=== PATIENT | female | born 1955 | race Caucasian/White ===

== ENCOUNTER 2017-03-21 02:41 | Observation (INO) | payer OTHER ==
[2017-03-21] VITALS (9 sets, daily range): BP systolic 132–218; BP diastolic 69–101; PULSE 53–67; RESP 18–19; TEMP 97.8–98.8; O2SAT 95–98
[~2017-03-21] VITALS: Ht 162.6 cm; Wt 115.0 kg
[~2017-03-21 02:41] MED LIST: LEVO125T4 PO; METF500T PO; MULT1TAB84 PO; SIMV20TA PO; VITA200013 PO
[2017-03-21] MEDS ORDERED: ASPIRIN 81 MG CHEW TAB PO ONE (03:15)
[2017-03-21] MEDS ORDERED: SODIUM CHLORIDE 0.9% FLUSH 10 ML FLUSH IVF PRN (03:15)
[2017-03-21] MEDS ORDERED: ASPI81CH37 CHEW (03:40)
[2017-03-21] MEDS ORDERED: TYLETAB34 PO (03:40)
[2017-03-21 03:48] LABS: AUTOMATED NEUTROPHIL # 5.6 TH/MM3 (1.8-7.7); BASOPHIL % 0.5 % (0.0-2.0); EOSINOPHIL # 0.2 TH/MM3 (0-0.4); EOSINOPHIL % 2.6 % (0.0-4.0); HEMATOCRIT 46.8 % (35.0-46.0); HEMO FLAGS DIFF FINAL; LYMPH % 29.5 % (9.0-44.0); LYMPHOCYTE # 2.7 TH/MM3 (1.0-4.8); MEAN CELL VOLUME 92.5 FL (80.0-100.0); MEAN CORPUSCULAR HEMOGLOBIN 30.5 PG (27.0-34.0); MEAN CORPUSCULAR HGB CONC 32.9 % (32.0-36.0); NEUT % 60.4 % (16.0-70.0); PLATELET COUNT 285 TH/MM3 (150-450); RED BLOOD COUNT 5.06 MIL/MM3 (4.00-5.30); RED CELL DISTRIBUTION WIDTH 13.6 % (11.6-17.2); WHITE BLOOD COUNT 9.3 TH/MM3 (4.0-11.0)
[2017-03-21 04:08] LABS: ALKALINE PHOSPHATASE 97 U/L (45-117); TOTAL BILIRUBIN ADULT 0.4 MG/DL (0.2-1.0)
[2017-03-21 04:12] LABS: ALT (GPT) 42 U/L (10-53); ANION GAP 7 MEQ/L (5-15); AST (GOT) 44 U/L (15-37); BICARBONATE 28.8 MEQ/L (21.0-32.0); BLOOD UREA NITROGEN 20 MG/DL (7-18); CHLORIDE 107 MEQ/L (98-107); GLOMERULAR FILTRATION RATE 60 ML/MIN (>89); POTASSIUM 4.6 MEQ/L (3.5-5.1); SODIUM (NA) 143 MEQ/L (136-145)
--- NOTE | 2017-03-21 04:19 | PD ---
HPI Chief Complaint: Chest Pain Time Seen by Provider: 02:59 Travel History International Travel<30 days: No Contact w/Intl Traveler<30days: No Traveled to known affect area: No History of Present Illness HPI This is a 61-year-old female who presents to the emergency department chest discomfort mostly in the epigastrium and sternal area radiating to the left shoulder, intermittent, occurring about 5 times overnight associated with some shortness of breath and nausea as well as lightheadedness. Patient reports she feels like this is similar to gallbladder attack she had when she still had her gallbladder. She had a stress test 3-4 years ago which was normal. She does have a history of diabetes, hyperlipidemia and her mother had a heart attack in her 50s. She recently was told that she has an abnormality on her mammogram and she has to have another test on Wednesday so she has been anxious and under some stress. PFSH Past Medical History High Cholesterol: Yes Diabetes: Yes Patient Takes Glucophage: Yes (METFORMIN 03/20/17 2300) Tetanus Vaccination: Unknown Influenza Vaccination: Yes Tubal Ligation: Yes Past Surgical History Abdominal Surgery: Yes (GASTRIC SLEEVE) Section: Yes (X3) Cholecystectomy: Yes Social History Alcohol Use: Yes (COUPLE BEERS PER NIGHT) Tobacco Use: No Substance Use: No Allergies-Medications (Allergen,Severity, Reaction): Coded Allergies: Penicillin (Verified Allergy, Severe, mouth and gum swelling, 03/21/17) Reported Meds & Prescriptions Reported Meds & Active Scripts Active Simvastatin 20 Mg Tab 20 Mg PO DAILY Levothyroxine (Levothyroxine Sodium) 125 Mcg Tab 125 Mcg PO DAILY Please make f/u appointment. Vitamin D (Cholecalciferol) 2,000 Unit Cap 1 Cap PO DAILY Metformin (Metformin HCl) 500 Mg Tab 500 Mg PO BID With a meal Reported Aspirin Low Dose (Aspirin) 81 Mg Chew 81 Mg CHEW DAILY Tylenol-Codeine #3 (Acetaminophen-Codeine) 300-30 mg Tab 1 Tab PO Q4H PRN Multivitamin Adults (Multiple Vitamins W/ Minerals) 1 Tab 1 Tab PO DAILY Review of Systems Except as stated in HPI: all other systems reviewed are Neg Physical Exam Narrative GENERAL:Well appearing, no acute distress SKIN: Focused skin assessment warm and dry. HEAD: Atraumatic. Normocephalic. EYES: Pupils equal and round. No injection or drainage. ENT: Moist mucous membranes NECK: Trachea midline. CARDIOVASCULAR: Regular rate and rhythm. No murmur appreciated. RESPIRATORY: Clear to auscultation. Breath sounds equal bilaterally. GASTROINTESTINAL: Abdomen soft, non-tender, nondistended. MUSCULOSKELETAL: No obvious deformities. NEUROLOGICAL: Awake and alert. No obvious cranial nerve deficits. Moving all extremities. PSYCHIATRIC: Appropriate mood and affect; insight and judgment normal. Data Data Last Documented VS Vital Signs Date Time Temp Pulse Resp B/P Pulse Ox O2 Delivery O2 Flow Rate FiO2 03/21/17 03:50 156/74 03/21/17 03:49 97 03/21/17 03:49 63 03/21/17 02:45 97.8 18 Room Air Orders Electrocardiogram (03/21/17 02:59) Electrocardiogram (03/21/17 03:07) Complete Blood Count With Diff (03/21/17 03:07) Comprehensive Metabolic Panel (03/21/17 03:07) D-Dimer (03/21/17 03:07) Troponin I (03/21/17 03:07) Chest, Single Ap (03/21/17 03:07) Ecg Monitoring (03/21/17 03:07) Bilateral Bp Monitoring (03/21/17 03:07) Iv Access Insert/Monitor (03/21/17 03:07) Oximetry (03/21/17 03:07) Oxygen Administration (03/21/17 03:07) Aspirin Chew (Aspirin Chew) (03/21/17 03:15) Sodium Chloride 0.9% Flush (Ns Flush) (03/21/17 03:15) Lipase (03/21/17 04:14) Admit Order (Ed Use Only) (03/21/17 04:17) Labs Laboratory Tests Test 03/21/17 03:40 White Blood Count 9.3 TH/MM3 Red Blood Count 5.06 MIL/MM3 Hemoglobin 15.4 GM/DL Hematocrit 46.8 % Mean Corpuscular Volume 92.5 FL Mean Corpuscular Hemoglobin 30.5 PG Mean Corpuscular Hemoglobin 32.9 % Concent Red Cell Distribution Width 13.6 % Platelet Count 285 TH/MM3 Mean Platelet Volume 9.0 FL Neutrophils (%) (Auto) 60.4 % Lymphocytes (%) (Auto) 29.5 % Monocytes (%) (Auto) 7.0 % Eosinophils (%) (Auto) 2.6 % Basophils (%) (Auto) 0.5 % Neutrophils # (Auto) 5.6 TH/MM3 Lymphocytes # (Auto) 2.7 TH/MM3 Monocytes # (Auto) 0.6 TH/MM3 Eosinophils # (Auto) 0.2 TH/MM3 Basophils # (Auto) 0.0 TH/MM3 CBC Comment DIFF FINAL Differential Comment D-Dimer Quantitative (PE/DVT) 0.46 MG/L FEU Sodium Level 143 MEQ/L Potassium Level 4.6 MEQ/L Chloride Level 107 MEQ/L Carbon Dioxide Level 28.8 MEQ/L Anion Gap 7 MEQ/L Blood Urea Nitrogen 20 MG/DL Creatinine 0.95 MG/DL Estimat Glomerular Filtration 60 ML/MIN Rate Random Glucose 106 MG/DL Calcium Level 9.4 MG/DL Total Bilirubin 0.4 MG/DL Aspartate Amino Transf 44 U/L (AST/SGOT) Alanine Aminotransferase 42 U/L (ALT/SGPT) Alkaline Phosphatase 97 U/L Troponin I LESS THAN 0.02 NG/ML Total Protein 7.6 GM/DL Albumin 4.0 GM/DL Lipase 159 U/L [facility] Medical Decision Making Medical Screen Exam Complete: Yes Emergency Medical Condition: Yes Interpretation(s) Afebrile, hypertensive Hemoconcentration Electrolytes are reassuring Troponin is normal Lipase is normal D-dimer is normal Chest x-rays reassuring EKG: Normal sinus rhythm, T-wave flattening V2 through V6 Differential Diagnosis Acute coronary syndrome, pancreatitis, gastritis, ulcer, pulmonary embolism Narrative Course This is a 61-year-old female who presents to the emergency department with sternal chest discomfort associated with some diaphoresis and shortness of breath. She has a history of diabetes and hyperlipidemia as well as a family history of coronary artery disease. She is placed on a monitor and an IV was established. She was given aspirin. EKG is nonischemic. Labs are all reassuring. I think patient would benefit from serial cardiac enzymes and the chest pain center and possible risk stratification Diagnosis Primary Impression: Chest pain Qualified Code: R07.9 - Chest pain, unspecified type Admitting Information Admitting Physician Requests: Kesha Drake MD March 21, 2017 04:19
[2017-03-21] MEDS ORDERED: NITROGLYCERIN 0.4 MG SL 25 TABS/BTL SL PRN ×2 (04:30→10:00)
--- NOTE | 2017-03-21 05:00 | RADRPT ---
EXAM DATE/TIME: 03/21/2017 04:25 [place] COMPARISON: No previous studies available for comparison. INDICATIONS : Chest pain. MEDICAL HISTORY : None. SURGICAL HISTORY : None. ENCOUNTER: Initial ACUITY: 1 day PAIN SCORE: 7/10 LOCATION: Bilateral chest FINDINGS: A single view of the chest demonstrates the lungs to be symmetrically aerated without evidence of mas s, infiltrate or effusion. The cardiomediastinal contours are unremarkable. Osseous structures are intact. CONCLUSION: No acute disease. Bam Mott MD on March 21, 2017 at 4:58 Board Certified Radiologist. This report was verified electronically.
[2017-03-21 06:50] LABS: CREATINE KINASE 190 U/L (26-192)
[2017-03-21 07:04] LABS: CKMB 2.6 NG/ML (0.5-3.6)
[2017-03-21] MEDS ORDERED: SODIUM CHLORIDE 0.9% FLUSH 10 ML FLUSH IV FLUSH SCH (09:00)
--- NOTE | 2017-03-21 09:12 | HHI.HP ---
[facility] Primary Care Physician Corrina Dee MD Chief Complaint Chest pain History of Present Illness 61-year-old female with history of diabetes, hyperlipidemia, and hypothyroidism presents to emergency room for further evaluation of epigastric and chest discomfort. Onset 2 AM, woke up at 1 AM due to chronic intermittent sciatica pain. She took her pain pill and laid back down. At 2 AM she developed epigastric pain radiated to her left chest and left arm. Left chest and arm felt as an ache. Pain describes "waves of pain"lasting 10 minutes each episode. Waves of pain began and epigastric area. Denies feeling of indigestion or burning. Total of 5 episodes of pain prompted her to call daughter to bring her to the emergency room. Associated symptoms included mild nausea. No vomiting or shortness of breath. Breathing did not make pain better or worse. Precipitating factors she believes could've been an anxiety attack, denies history of anxiety attacks. Endorses she was recently told she has an irregularity in her mammogram and is scheduled for a diagnostic mammogram and ultrasound on Wednesday. Also her is currently overseas. Relieving factors was walking around the house. No particular position makes pain better or worse. Denies any pain once arriving to ER. Review of Systems General: No fatigue,weakness, fever, chills, or recent illness. Has been in her general state of health. Endorses some situational stress. is currently overseas as his mother is very ill. Recently told her mammogram was abnormal and is scheduled for a diagnostic mammogram tomorrow. Endorses she is worried and anxious about exam. HEENT: No GUEVARA, no vision changes, no nasal congestion or drainage, no dysphasia, no history of acid reflux CV: As stated above. Denies any current chest pain or pressure. No palpitations, intermittent leg pain, or dizziness RESP: No SOB, cough, wheeze, or recent URI. GI: Nausea has improved. No vomiting, bowel changes, diarrhea, constipation, pain, distention, melena, blood in the stool. No change in appetite, no unintentional weight gain or weight loss : No dysuria, urgency, frequency EXT: No lower leg edema, no paraesthesias MS: No discomfort or change in ROM. NEURO: No change in memory, dizziness, difficulty with balance, LOC, motor/ sensory deficits PSYCH: No history of anxiety or depression. Endorses situational stress and was concerned maybe this episode was an anxiety attack. SKIN: No rashes, no concerning lesions Past Family Social History Allergies: Coded Allergies: Penicillin (Verified Allergy, Severe, mouth and gum swelling, 03/21/17) Past Medical History Diabetes, hyperlipidemia, hypothyroidism Past Surgical History Tubal ligation, gastric sleeve, cholecystectomy, 3 Reported Medications Reported Meds & Active Scripts Active Simvastatin 20 Mg Tab 20 Mg PO DAILY Levothyroxine (Levothyroxine Sodium) 125 Mcg Tab 125 Mcg PO DAILY Please make f/u appointment. Vitamin D (Cholecalciferol) 2,000 Unit Cap 1 Cap PO DAILY Metformin (Metformin HCl) 500 Mg Tab 500 Mg PO BID With a meal Reported Aspirin Low Dose (Aspirin) 81 Mg Chew 81 Mg CHEW DAILY Tylenol-Codeine #3 (Acetaminophen-Codeine) 300-30 mg Tab 1 Tab PO Q4H PRN Multivitamin Adults (Multiple Vitamins W/ Minerals) 1 Tab 1 Tab PO DAILY Active Ordered Medications Current Medications Medications (Trade) Dose Ordered Sig/Dunia Route Start Time Stop Time Status Last Admin (NS Flush) 2 ml UNSCH PRN IVF 03/21/17 03:15 (Nitrostat Sl) 0.4 mg Q5M PRN SL 03/21/17 04:30 (NS Flush) 2 ml BID IV FLUSH 03/21/17 09:00 Family History Mother at age 59 from heart attack. Fatherangina, and bilateral CEA. Social History Known hyperlipidemia and diabetes. States she has "borderline" diabetic. No known hypertension. Lifelong nonsmoker. Denies any illegal drug use. Endorses drinking 2 beers each evening. , active in her yard 56 hours daily. Past cardiac testing No recent stress testing. Believes she had a exercise stress test 34 years ago which was unremarkable. No past cardiac catheterizations. Never required a jerker. Physical Exam Vital Signs Vital Signs Date Time Temp Pulse Resp B/P Pulse Ox O2 Delivery O2 Flow Rate FiO2 03/21/17 08:18 60 03/21/17 08:09 60 03/21/17 07:51 98.8 53 18 132/69 98 03/21/17 06:29 98.0 62 19 140/76 97 03/21/17 06:10 62 16 148/73 98 03/21/17 03:50 156/74 03/21/17 03:49 97 03/21/17 03:49 97 03/21/17 03:49 63 162/75 03/21/17 02:45 97.8 67 18 218/101 97 Room Air Physical Exam GENERAL: Alert WN, WD, NAD, pleasant, obese, female HEAD: NC, AT EYES: Sclera clear, conjunctiva without injection, pupils equal and round ENT: Mucous membranes pink and moist NECK: Supple, no masses, trachea midline CV: RRR, without murmur, rub, gallop, no JVD, S1-S2 no S3-S4. No carotid bruits. RESP: Clear lungs throughout bilateral, no crackles, wheeze, rhonchi, symmetrical chest rise, nonlabored, able to speak in full sentences ABD: Soft, NT, ND, no masses, obese, positive bowel tones BACK: No CVAT EXT: Pulses +24, no dependent edema MS: Normal tone 4 extremities, nontender including chest wall and epigastric area, no obvious deformities, full range of motion NEURO: CN II through CN XII grossly intact, motor strength 5/5, gait WNL PSYCH: A+O 3, pleasant affect, appropriate speech, appropriate mood and affect , insight and judgment SKIN: Normal turgor, normal texture, no lesions, no rashes, brisk cap refill, even hair distribution Laboratory Laboratory Tests Test 03/21/17 03/21/17 03:40 06:00 White Blood Count 9.3 Red Blood Count 5.06 Hemoglobin 15.4 Hematocrit 46.8 Mean Corpuscular Volume 92.5 Mean Corpuscular Hemoglobin 30.5 Mean Corpuscular Hemoglobin 32.9 Concent Red Cell Distribution Width 13.6 Platelet Count 285 Mean Platelet Volume 9.0 Neutrophils (%) (Auto) 60.4 Lymphocytes (%) (Auto) 29.5 Monocytes (%) (Auto) 7.0 Eosinophils (%) (Auto) 2.6 Basophils (%) (Auto) 0.5 Neutrophils # (Auto) 5.6 Lymphocytes # (Auto) 2.7 Monocytes # (Auto) 0.6 Eosinophils # (Auto) 0.2 Basophils # (Auto) 0.0 CBC Comment DIFF FINAL Differential Comment D-Dimer Quantitative (PE/DVT) 0.46 Sodium Level 143 Potassium Level 4.6 Chloride Level 107 Carbon Dioxide Level 28.8 Anion Gap 7 Blood Urea Nitrogen 20 Creatinine 0.95 Estimat Glomerular Filtration 60 Rate Random Glucose 106 Calcium Level 9.4 Total Bilirubin 0.4 Aspartate Amino Transf 44 (AST/SGOT) Alanine Aminotransferase 42 (ALT/SGPT) Alkaline Phosphatase 97 Troponin I LESS THAN 0.02 LESS THAN 0.02 Total Protein 7.6 Albumin 4.0 Lipase 159 Total Creatine Kinase 190 Creatine Kinase MB 2.6 Result Diagram: 03/21/1733903/21/17339 Imaging Last Impressions Chest X-Ray 03/21/17306 Signed Impressions: Service Date/Time: Tuesday, March 21, 2017 04:25 - CONCLUSION: No acute disease. Bam Mott MD Course EKGs First to EKGs-normal sinus rhythm, nonspecific T-wave changes, no ST segment changes Assessment and Plan Assessment and Plan #1 Chest painadmitted to chest pain center. Will rule out with 3 sets of EKGs and cardiac enzymes. Will be seen and evaluated by Dr. Donny López. Discussed the likelihood due to patient's multiple risk factors stress test most likely will be completed this a.m. She is agreeable to plan of care. Chest pain atypical and appears to be GI related. #2 Diabetescontinue metformin #3 Hyperlipidemia continue simvastatin #4 Hypothyroidismcontinue levothyroxine #5 GERDProtonix 40 mg by mouth, currently symptoms have resolved therefore no immediate release medication required. #6 Situational stressencouraged daily activity, eating a well-balanced diet, and ensuring adequate sleep. Haley Castro March 21, 2017 09:12
[2017-03-21] MEDS ORDERED: MULTIVITAMINS/MINERALS THERAPEUTIC TAB PO SCH (10:00)
[2017-03-21] MEDS ORDERED: LEVOTHYROXINE SODIUM 125 MCG TAB PO SCH (10:00)
[2017-03-21] MEDS ORDERED: PRAVASTATIN SOD 40 MG TAB PO SCH (10:00)
[2017-03-21] MEDS ORDERED: ACETAMINOPHEN 500 MG CPLT PO PRN (10:00)
[2017-03-21] MEDS ORDERED: ONDANSETRON HCL 4 MG/2 ML VIAL IV PRN (10:00)
[2017-03-21] MEDS ORDERED: PANTOPRAZOLE SOD 40 MG DELAYED RELEASE TAB PO SCH (10:00)
[2017-03-21] MEDS ORDERED: CHOLECALCIFEROL (VIT D3) 1000 UNIT TAB PO SCH (10:00)
[2017-03-21 10:04] LABS: CREATINE KINASE 166 U/L (26-192)
[2017-03-21 10:16] LABS: CKMB 2.8 NG/ML (0.5-3.6)
--- NOTE | 2017-03-21 12:05 | HHI.DCPOC ---
Discharge Care Plan Diagnosis: (1) Atypical chest pain (2) Type 2 diabetes mellitus (3) GERD (gastroesophageal reflux disease) (4) Situational stress Goals to Promote Your Health * To prevent worsening of your condition and complications * To maintain your health at the optimal level Directions to Meet Your Goals Take your medications as prescribed Follow your dietary instruction Follow activity as directed Keep your appointments as scheduled Take your immunizations and boosters as scheduled If your symptoms worsen call your PCP, if no PCP go to Urgent Care Center or Emergency Room Smoking is Dangerous to Your Health. Avoid second hand smoke Call the 24-hour hour crisis hotline for domestic abuse at Haley Castro March 21, 2017 12:05
--- NOTE | 2017-03-21 12:21 | TR ---
Date Performed: 03/21/2017 Time Performed: 10:52:10 DOCTOR: Donny López DRUG LIST: CLINICAL HISTORY: CHEST PAIN REASON FOR TEST: Chest pain REASON FOR ENDING: OBSERVATION: CONCLUSION: Juan Miguel protocol completed. Stopped sec to exceeding target heart rate and leg fatigue . Maximum XD=053 Target HR Achieved=89.0% Maximum UH=025/84 Total Exercise Time=6:19. No st t segment changes to sugg ischemia. Rare PVC. No reprod chest discomfort. Good exercise tolerance. Normal bp r esponse. Recovery quick and unremarkable. COMMENTS: Conclusion: Normal treadmill exercise. No evidence of ischemia.
--- NOTE | 2017-03-21 14:16 | EKG ---
Date Performed: 03/21/2017 Time Performed: 09:12:58 PTAGE: 61 years EKG: SINUS BRADYCARDIA NONSPECIFIC T-WAVE ABNORMALITY BORDERLINE ECG PREVIOUS TRACING : 03/21/2017 06.02 Since previous tracing, no significant change noted DOCTOR: Donny López Interpretating Date/Time 03/21/2017 14:15:52
--- NOTE | 2017-03-21 14:17 | EKG ---
Date Performed: 03/21/2017 Time Performed: 03:09:42 PTAGE: 61 years EKG: Sinus rhythm NORMAL ECG NO PREVIOUS TRACING DOCTOR: Donny López Interpretating Date/Time 03/21/2017 14:16:29
--- NOTE | 2017-03-21 14:17 | EKG ---
Date Performed: 03/21/2017 Time Performed: 06:02:05 PTAGE: 61 years EKG: Sinus rhythm NORMAL ECG Since PREVIOUS TRACING , no significant change noted DOCTOR: Donny López Interpretating Date/Time 03/21/2017 14:16:18
[2017-03-21] MEDS ORDERED: metFORMIN HCL 500 MG TAB PO SCH (21:00)
[2017-03-22] MEDS ORDERED: ASPIRIN 325 MG TAB PO SCH (09:00)
[2017-03-24] MEDS ORDERED: METF500T PO (09:42)
[2017-03-24] MEDS ORDERED: SIMV20TA PO (09:42)
[2017-03-24] MEDS ORDERED: LEVO125T4 PO (09:42)
[2017-03-24] MEDS ORDERED: LISI2.5T3 PO (09:42)
[2017-04-14] MEDS ORDERED: BENZ1CAP8 PO (12:57)
== END 2017-03-21 14:26 | disposition home or self-care (01) ==
LOC: NEPE 02:41 → NEDA 04:18 → NEPHCDU 06:25
DX: R07.89 Other chest pain (principal); M25.512 Pain in left shoulder; R10.13 Epigastric pain; M54.30 Sciatica, unspecified side; R11.0 Nausea; E11.9 Type 2 diabetes mellitus without complications; K21.9 Gastro-esophageal reflux disease without esophagitis; R42 Dizziness and giddiness; R61 Generalized hyperhidrosis; I10 Essential (primary) hypertension; E03.9 Hypothyroidism, unspecified; R92.8 Other abnormal and inconclusive findings on diagnostic imaging of breast; R00.1 Bradycardia, unspecified; Z68.41 Body mass index [BMI] 40.0-44.9, adult; E66.9 Obesity, unspecified; E78.5 Hyperlipidemia, unspecified; Z82.49 Family history of ischemic heart disease and other diseases of the circulatory system; E78.00 Pure hypercholesterolemia, unspecified; Z98.51 Tubal ligation status; Z98.84 Bariatric surgery status; Z90.49 Acquired absence of other specified parts of digestive tract; Z79.84 Long term (current) use of oral hypoglycemic drugs; Z79.82 Long term (current) use of aspirin; Z79.899 Other long term (current) drug therapy
CPT/HCPCS: 71010; 80053; 82550; 82552; 83690; 84484; 85025; 85379; 93005; 93017; 99285; G0378

== ENCOUNTER 2017-05-20 15:14 | Emergency (ER) | payer OTHER ==
[~2017-05-20] VITALS: Ht 167.6 cm; Wt 104.5 kg
[~2017-05-20 15:14] MED LIST changes: +ASPI81CH37 CHEW; +BENZ1CAP8 PO; +LISI2.5T3 PO; +TYLETAB34 PO
[2017-05-20 15:17] VITALS: BP 142/72; PULSE 99; RESP 20; TEMP 100.1; O2SAT 93
[2017-05-21] MEDS ORDERED: AMOX875T PO (12:36)
== END 2017-05-20 18:47 | disposition left against medical advice (07) ==
LOC: NED 15:14
DX: L98.9 Disorder of the skin and subcutaneous tissue, unspecified (principal)
CPT/HCPCS: 99281

== ENCOUNTER 2017-05-21 11:34 | Inpatient (IN) | payer OTHER ==
[~2017-05-21] VITALS: Ht 167.6 cm; Wt 103.0 kg
[2017-05-21] VITALS (7 sets, daily range): BP systolic 120–140; BP diastolic 63–90; PULSE 73–88; RESP 15–24; TEMP 97.5–98.6; O2SAT 95–99
--- NOTE | 2017-05-21 11:58 | PD ---
Physical Exam Time Seen by Provider: 11:54 Narrative 61yo F possible insect bite to posterior left leg since Wednesday. +nausea w/o vomiting. Fever yesterday. +fatigue. Large area of cellulitis noted to left upper posterior leg in triage. Patient seen in triage. VS reviewed. Awaiting bed placement. Data Data Last Documented VS Vital Signs Date Time Temp Pulse Resp B/P Pulse Ox O2 Delivery O2 Flow Rate FiO2 05/21/17 11:36 98.3 88 24 132/[address] [facility] Supervised Visit with MARQUITA: Maureen Walker May 21, 2017 11:58
[2017-05-21] MEDS ORDERED: SODIUM CHLOR 0.9% 1000 ML INJ 1,000 ML IV SCH ×2 (12:18)
--- NOTE | 2017-05-21 12:23 | PD ---
HPI Chief Complaint: Bite or Sting Time Seen by Provider: 12:08 Travel History International Travel<30 days: No Contact w/Intl Traveler<30days: No Traveled to known affect area: No History of Present Illness HPI This is a 61-year-old female, patient of Dr. Montoya, who presents for evaluation of an area of painful redness on the posterior left thigh. She reports that 2 days ago she was working in her yard and she believes that a bug bit her. She developed a large area of erythema to the posterior left thigh. She had low-grade fever yesterday. She came here but left without being seen because it was too busy. She presents today with worsening redness. There is some central necrosis. The nausea and decreased appetite. She denies any vomiting, upper respiratory symptoms, chest pain or shortness of breath, abdominal pain, dysuria. No other complaints. PFSH Past Medical History Cardiovascular Problems: Yes High Cholesterol: Yes Diabetes: Yes Tubal Ligation: Yes Past Surgical History Abdominal Surgery: Yes (GASTRIC SLEEVE) Section: Yes (X3) Cholecystectomy: Yes Social History Alcohol Use: Yes (COUPLE BEERS PER NIGHT) Tobacco Use: No Substance Use: No Allergies-Medications (Allergen,Severity, Reaction): Coded Allergies: Penicillin (Verified Allergy, Severe, mouth and gum swelling, 05/21/17) Reported Meds & Prescriptions Reported Meds & Active Scripts Active Lisinopril 2.5 Mg Tab 2.5 Mg PO DAILY Simvastatin 20 Mg Tab 20 Mg PO DAILY Levothyroxine (Levothyroxine Sodium) 125 Mcg Tab 125 Mcg PO DAILY Please make f/u appointment. Metformin (Metformin HCl) 500 Mg Tab 500 Mg PO BID With a meal Vitamin D (Cholecalciferol) 2,000 Unit Cap 1 Cap PO DAILY Reported Aspirin Low Dose (Aspirin) 81 Mg Chew 81 Mg CHEW DAILY Review of Systems Except as stated in HPI: all other systems reviewed are Neg Physical Exam Narrative GENERAL: Well-developed well-nourished female who appears uncomfortable on initial examination. SKIN: Warm and dry. There is a large area of erythema to the left posterior thigh with induration and central necrosis. There is no fluctuance or drainage. HEAD: Atraumatic. Normocephalic. EYES: Pupils equal and round. No scleral icterus. No injection or drainage. ENT: No nasal bleeding or discharge. Mucous membranes pink and moist. NECK: Trachea midline. No JVD. CARDIOVASCULAR: Regular rate and rhythm. No murmur appreciated. RESPIRATORY: No accessory muscle use. Clear to auscultation. Breath sounds equal bilaterally. GASTROINTESTINAL: Abdomen soft, non-tender, nondistended. Hepatic and splenic margins not palpable. MUSCULOSKELETAL: No obvious deformities. Skin as noted above. No lower extremity edema. NEUROLOGICAL: Awake and alert. No obvious cranial nerve deficits. Motor grossly within normal limits. Normal speech. PSYCHIATRIC: Appropriate mood and affect; insight and judgment normal. Data Data Last Documented VS Vital Signs Date Time Temp Pulse Resp B/P Pulse Ox O2 Delivery O2 Flow Rate FiO2 05/21/17 12:42 97.5 88 16 140/65 95 Room Air Orders Complete Blood Count With Diff (05/21/17 12:18) Comprehensive Metabolic Panel (05/21/17 12:18) Lactic Acid Sepsis Protocol (05/21/17 12:18) Blood Culture (05/21/17 12:18) Iv Access Insert/Monitor (05/21/17 12:18) Ondansetron Inj (Zofran Inj) (05/21/17 12:30) Sodium Chlor 0.9% 1000 Ml Inj (Ns 1000 M (05/21/17 12:18) Sodium Chlor 0.9% 1000 Ml Inj (Ns 1000 M (05/21/17 12:18) Vancomycin Inj (Vancomycin Inj) (05/21/17 12:45) Levofloxacin 500 Mg Premix Inj (Levaquin (05/21/17 12:45) Admit Order (Ed Use Only) (05/21/17 14:00) Labs Laboratory Tests Test 05/21/17 12:47 White Blood Count 26.1 TH/MM3 Red Blood Count 4.89 MIL/MM3 Hemoglobin 14.8 GM/DL Hematocrit 45.2 % Mean Corpuscular Volume 92.4 FL Mean Corpuscular Hemoglobin 30.2 PG Mean Corpuscular Hemoglobin 32.7 % Concent Red Cell Distribution Width 14.2 % Platelet Count 329 TH/MM3 Mean Platelet Volume 10.0 FL Neutrophils (%) (Auto) 87.8 % Lymphocytes (%) (Auto) 6.1 % Monocytes (%) (Auto) 3.5 % Eosinophils (%) (Auto) 2.3 % Basophils (%) (Auto) 0.3 % Neutrophils # (Auto) 22.9 TH/MM3 Lymphocytes # (Auto) 1.6 TH/MM3 Monocytes # (Auto) 0.9 TH/MM3 Eosinophils # (Auto) 0.6 TH/MM3 Basophils # (Auto) 0.1 TH/MM3 CBC Comment AUTO DIFF Differential Comment AUTO DIFF CONFIRMED Sodium Level 136 MEQ/L Potassium Level 4.0 MEQ/L Chloride Level 103 MEQ/L Carbon Dioxide Level 24.6 MEQ/L Anion Gap 8 MEQ/L Blood Urea Nitrogen 12 MG/DL Creatinine 0.94 MG/DL Estimat Glomerular Filtration 61 ML/MIN Rate Random Glucose 107 MG/DL Lactic Acid Level 1.4 mmol/L Calcium Level 9.4 MG/DL Total Bilirubin 0.6 MG/DL Aspartate Amino Transf 60 U/L (AST/SGOT) Alanine Aminotransferase 87 U/L (ALT/SGPT) Alkaline Phosphatase 125 U/L Total Protein 8.1 GM/DL Albumin 3.2 GM/DL MDM Medical Decision Making Medical Screen Exam Complete: Yes Emergency Medical Condition: Yes Medical Record Reviewed: Yes Differential Diagnosis Cellulitis, necrotizing fasciitis, erysipelas, abscess, sepsis Narrative Course 61-year-old female with rapidly progressing cellulitic changes to the posterior left thigh, low-grade fevers yesterday. Plan is for basic lab work. She'll be given IV vancomycin and Zosyn and IV fluids. Her lab work has been reviewed. She has a significant leukocytosis. Given the rapid progression of her cellulitis, plan is to admit her for IV antibiotics. She is agreeable. Discussed with Dr. Bolden who is agreeable with admission. Diagnosis Primary Impression: Cellulitis of left leg Additional Impression: Leukocytosis Qualified Code: D72.829 - Leukocytosis, unspecified type Admitting Information Admitting Physician Requests: Admit Jed Carballo May 21, 2017 12:23
[2017-05-21] MEDS ORDERED: ONDANSETRON HCL 4 MG/2 ML VIAL IVP ONE (12:30)
[2017-05-21] MEDS ORDERED: AMOX875T PO (12:36)
[2017-05-21] MEDS ORDERED: LEVOFLOXACIN 500 MG PREMIX INJ 100 ML IV ONE (12:45)
[2017-05-21] MEDS ORDERED: VANCOMYCIN INJ 1,000 MG in SODIUM CHLOR 0.9% 250 ML INJ 250 ML IV ONE (12:45)
[2017-05-21 13:06] LABS: AUTOMATED NEUTROPHIL # 22.9 TH/MM3 (1.8-7.7); BASOPHIL # 0.1 TH/MM3 (0-0.2); BASOPHIL % 0.3 % (0.0-2.0); EOSINOPHIL # 0.6 TH/MM3 (0-0.4); EOSINOPHIL % 2.3 % (0.0-4.0); HEMATOCRIT 45.2 % (35.0-46.0); LYMPH % 6.1 % (9.0-44.0); LYMPHOCYTE # 1.6 TH/MM3 (1.0-4.8); MEAN CELL VOLUME 92.4 FL (80.0-100.0); MEAN CORPUSCULAR HEMOGLOBIN 30.2 PG (27.0-34.0); MEAN CORPUSCULAR HGB CONC 32.7 % (32.0-36.0); MONO % 3.5 % (0.0-8.0); NEUT % 87.8 % (16.0-70.0); PLATELET COUNT 329 TH/MM3 (150-450); RED BLOOD COUNT 4.89 MIL/MM3 (4.00-5.30); RED CELL DISTRIBUTION WIDTH 14.2 % (11.6-17.2); WHITE BLOOD COUNT 26.1 TH/MM3 (4.0-11.0)
[2017-05-21 13:17] LABS: HEMO FLAGS AUTO DIFF
[2017-05-21 13:21] LABS: ALKALINE PHOSPHATASE 125 U/L (45-117); TOTAL BILIRUBIN ADULT 0.6 MG/DL (0.2-1.0)
[2017-05-21 13:34] LABS: ALT (GPT) 87 U/L (10-53); ANION GAP 8 MEQ/L (5-15); AST (GOT) 60 U/L (15-37); BICARBONATE 24.6 MEQ/L (21.0-32.0); BLOOD UREA NITROGEN 12 MG/DL (7-18); CHLORIDE 103 MEQ/L (98-107); GLOMERULAR FILTRATION RATE 61 ML/MIN (>89); SODIUM (NA) 136 MEQ/L (136-145)
[2017-05-21 13:45] LABS: SCAN/DIFF AUTO DIFF CONFIRMED
[2017-05-21] MEDS ORDERED: SODIUM CHLORIDE 0.9% FLUSH 10 ML FLUSH IV FLUSH PRN ×2 (14:15→14:45)
--- NOTE | 2017-05-21 14:25 | HHI.HP ---
[facility] Service Family Medicine Primary Care Physician Corrina Dee MD Admission Diagnosis cellulitis, leukocytosis Diagnoses: International Travel<30 Days: No Contact w/Intl Traveler<30days: No Known Affected Area: No History of Present Illness Ms. Spencer is a 61-year-old female with a history of hypertension, prediabetes and hypothyroidism who presents to the ED with a three-day history of worsening left posterior thigh rash associated with pain. He knows that she first noticed symptoms on Wednesday evening around 6 PM shortly after gardening. At the time she was wearing shorts and had been gardening without incident for a while. She states she was standing while gardening and did not sit, however she does know she lives near [facility] with lots of potential wildlife there. She does not remember being bitten by a bug but she thinks she might have given that she noticed a nickel-sized red tyron on the back of her thigh shortly after coming inside. Quickly progressed to quarter and then half dollar size prior to her going to bed. The next morning she noticed that the lesion was approximately the size of her hand and she does commenced to ice the area. This did not help much so she tried heating pads at night. She came to the ED on 05/20/17 because she had nausea as well as a growing lesion but decided to leave without being seen. This morning, she noticed a black spot in the middle of the thigh lesion and decided to come in because this worried her. The pain at its worse is 10/10 when she is moving and is 0/10 when she is completely still. She has never had any lesions like this. She denies any history of skin infections and denies ever being told she has MRSA. She denies any fevers at home. She had one episode of nausea yesterday but this has resolved. She does endorse a continued loss of appetite. She denies any episodes of vomiting, diarrhea, upper respiratory infection, diaphoresis, chest pain, shortness of breath. She denies that the lesion has had any drainage or bleeding. She denies itching. She notes no pain when she is still but has significant pain of the posterior left thigh when she moves it. She notes no joint pain. She notes chronic anxiety but does not take any medications for this. (Latha Bolden MD R1) Review of Systems Constitutional: COMPLAINS OF: Change in appetite, DENIES: Fever, Chills Eyes: DENIES: Blurred vision, Diplopia Ears, nose, mouth, throat: DENIES: Hearing loss, Vertigo, Nasal discharge, Oral lesions, Throat pain, Running Nose Respiratory: COMPLAINS OF: Cough (new, dry cough), DENIES: Shortness of breath Cardiovascular: DENIES: Chest pain, Palpitations, Syncope Gastrointestinal: COMPLAINS OF: Nausea, DENIES: Abdominal pain, Black stools, Bloody stools, Vomiting Musculoskeletal: DENIES: Joint pain, Muscle aches, Stiffness, Joint Swelling Integumentary: COMPLAINS OF: Rash (leg posterior upper left), DENIES: Pruritus Hematologic/lymphatic: DENIES: Bruising, Lymphadenopathy Immunologic/allergic: DENIES: Urticaria Neurologic: DENIES: Headache, Paresthesias, Poor Balance Psychiatric: COMPLAINS OF: Anxiety, DENIES: Depression (Latha Bolden MD R1) Past Family Social History Past Medical History Hypothyroidism Prediabetes Hypertension Hyperlipidemia Anxiety Past Surgical History 3 Gastric sleeve 4 years ago Cholecystectomy 15 years ago Salpingectomy after tubal Reported Medications Reported Meds & Active Scripts Active Lisinopril 2.5 Mg Tab 2.5 Mg PO DAILY Simvastatin 20 Mg Tab 20 Mg PO DAILY Levothyroxine (Levothyroxine Sodium) 125 Mcg Tab 125 Mcg PO DAILY Please make f/u appointment. Metformin (Metformin HCl) 500 Mg Tab 500 Mg PO BID With a meal Vitamin D (Cholecalciferol) 2,000 Unit Cap 1 Cap PO DAILY Reported Aspirin Low Dose (Aspirin) 81 Mg Chew 81 Mg CHEW DAILY (Latha Bolden MD R1) Allergies: Coded Allergies: Penicillin (Verified Allergy, Severe, mouth and gum swelling, 05/21/17) Active Ordered Medications Inpatient Medications Acetaminophen (Tylenol) 650 mg Q4H PRN PO TEMP > 100.4; Start 05/21/17 at 14:45 Acetaminophen/ Hydrocodone Bitart ([place] 5-325 Mg) 1 tab Q4H PRN PO PAIN SCALE 3 TO 5 Last administered on 05/21/17t 21:37; Start 05/21/17 at 20:30 Aspirin (Aspirin Chew) 81 mg DAILY CHEW ; Start 05/22/17 at 09:00 Bisacodyl (Dulcolax Supp) 10 mg DAILY PRN RECTAL SEVERE CONSITIPATION; Start at 14:45 Cholecalciferol (Vitamin D3) 2,000 units DAILY PO ; Start 05/22/17 at 09:00 Clonidine (Catapres) 0.1 mg Q6H PRN PO SBP> OR = 180, DBP> OR = 100; Start 05/21 at 15:15 Enoxaparin Sodium (Lovenox Inj) 40 mg Q24H SQ ; Start 05/21/17 at 17:00 Insulin Aspart (NovoLOG SUPPLEMENTAL SCALE) 1 ACHS SLIDING SCALE SQ ; Start 05/21/17 at 21:00 Lactulose 30 ml 30 ml DAILY PRN PO SEVERE CONSITIPATION; Start 05/21/17 at 14:45 Levofloxacin/ Dextrose (Levaquin 500 Mg Premix Inj) 100 ml @ 100 mls/hr ONCE ONCE IV Last administered on 05/21/17t 14:17; Start 05/21/17 at 12:45; Stop at 13:44; Status DC Levothyroxine Sodium (Synthroid) 125 mcg DAILY@06 PO ; Start 05/22/17 at 06:00 Lisinopril (Prinivil) 2.5 mg DAILY PO ; Start 05/22/17 at 09:00 Magnesium Hydroxide (Milk Of Magnesia Liq) 30 ml Q12H PRN PO MILD - MODERATE CONSTIPATION; Start 05/21/17 at 14:45 Miscellaneous Information SPECIFIC LAB TO BE ... ONCE ONCE .XX ; Start 05/24 at 12:45; Stop 05/24/17 at 12:46 Naloxone HCl (Narcan Inj) 0.4 mg UNSCH PRN IV SEE LABEL COMMENTS; Start at 20:30 Ondansetron HCl (Zofran Inj) 4 mg Q6H PRN IVP NAUSEA OR VOMITING; Start at 14:45 Ondansetron HCl 4 mg 4 mg ONCE ONCE IVP Last administered on 05/21/17t 12:51; Start 05/21/17 at 12:30; Stop 05/21/17 at 12:36; Status DC Pharmacy Profile Note (Vancomycin Consult Pharmacy) 0 ml @ 0 mls/hr UNSCH OTHER ; Start 05/21/17 at 15:00 Pravastatin Sodium (Pravachol) 40 mg DAILY PO ; Start 05/22/17 at 09:00 Senna/Docusate Sodium (Estee-Colace) 1 tab BID PO ; Start 05/21/17 at 21:00 Sennosides (Senokot) 17.2 mg Q12H PRN PO MODERATE - SEVERE CONSTIPATION; Start 05/21/17 at 14:45 Sodium Chloride (NS Flush) 2 ml BID IV FLUSH Last administered on 05/21/17 22: 12; Start 05/21/17 at 21:00 Vancomycin HCl 1000 mg/Sodium Chloride 250 ml @ 250 mls/hr ONCE ONCE IV Last administered on 05/21/17 12:56; Start 05/21/17 at 12:45; Stop 05/21/17 at 13:44; Status DC Vancomycin HCl 1500 mg/Sodium Chloride 515 ml @ 257.5 mls/ hr Q24H IV ; Start 05/22/17 at 13:00 Family History Father: Lung cancer age 74 Mother: PA at age 59 Social History Patient denies cigarettes She drinks 2 beers a day max 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 SKIN: Warm and dry. Skin is notable for large area of slightly raised erythema along the entire inner portion of the left upper thigh, extending to the posterior thigh. The area is approximately 12 x 10" and is marked with a pen. The central region of the lesion has an area of necrosis. There is no drainage. There is no bleeding. It is warm to the touch. There is no area of fluctuance but it is indurated. There are small pus filled papules, measuring approximately 1-2 mm in diameter within the lesion as well as in the surrounding nonerythematous skin. HEAD: Atraumatic. Normocephalic. EYES: Pupils equal and round. No scleral icterus. No injection or drainage. ENT: No nasal bleeding or discharge. Mucous membranes pink and moist. NECK: Trachea midline. No JVD. CARDIOVASCULAR: Regular rate and rhythm. No murmurs, gallops, or rubs. RESPIRATORY: No accessory muscle use. Clear to auscultation with no crackles, no wheezes wheezes.. Breath sounds equal bilaterally. GASTROINTESTINAL: Abdomen soft, obese and non-tender, nondistended. Hepatic and splenic margins not palpable. MUSCULOSKELETAL: Extremities without clubbing, cyanosis, or edema. No obvious deformities. There is no calf tenderness. Homans sign is negative. NEUROLOGICAL: Awake and alert. No obvious cranial nerve deficits. Motor grossly within normal limits. Five out of 5 muscle strength in the arms and legs. Normal speech. PSYCHIATRIC: Appropriate mood and affect; insight and judgment normal. She is a bit anxious during the exam. Laboratory Laboratory Tests Test 05/21/17 12:47 White Blood Count 26.1 Red Blood Count 4.89 Hemoglobin 14.8 Hematocrit 45.2 Mean Corpuscular Volume 92.4 Mean Corpuscular Hemoglobin 30.2 Mean Corpuscular Hemoglobin 32.7 Concent Red Cell Distribution Width 14.2 Platelet Count 329 Mean Platelet Volume 10.0 Neutrophils (%) (Auto) 87.8 Lymphocytes (%) (Auto) 6.1 Monocytes (%) (Auto) 3.5 Eosinophils (%) (Auto) 2.3 Basophils (%) (Auto) 0.3 Neutrophils # (Auto) 22.9 Lymphocytes # (Auto) 1.6 Monocytes # (Auto) 0.9 Eosinophils # (Auto) 0.6 Basophils # (Auto) 0.1 CBC Comment AUTO DIFF Differential Comment AUTO DIFF CONFIRMED Sodium Level 136 Potassium Level 4.0 Chloride Level 103 Carbon Dioxide Level 24.6 Anion Gap 8 Blood Urea Nitrogen 12 Creatinine 0.94 Estimat Glomerular Filtration 61 Rate Random Glucose 107 Lactic Acid Level 1.4 Calcium Level 9.4 Total Bilirubin 0.6 Aspartate Amino Transf 60 (AST/SGOT) Alanine Aminotransferase 87 (ALT/SGPT) Alkaline Phosphatase 125 Total Protein 8.1 Albumin 3.2 Date/Time Procedure Status Source Growth 05/21/17 12:47 Aerobic Blood Culture Received Blood Peripheral Pending 05/21/17 12:47 Anaerobic Blood Culture Received Blood Peripheral Pending (Latha Bolden MD R1) Result Diagram: 05/21/17 1247 05/21/17 1247 Assessment and Plan Assessment and Plan 61-year-old female with history of hypertension, prediabetes, and hypothyroidism who presents to the ED with a rapidly over the progressive lesion on the left posterior thigh concerning for erysipelas/cellulitis/ abscess. She will be admitted to observation for inpatient antibiotics given the rapid progression of her lesion. Code Status Full code Discussed Condition With Seen and discussed with Dr. Bang, PGY 1 (Latha Bolden MD R1) Attending Attestation THIS CASE WAS DISCUSSED WITH THE RESIDENT PHYSICIANS. I HAVE REVIEWED THE RECORD AND AGREE WITH THE ABOVE NOTE AND PLAN OF CARE WAS DISCUSSED. I HAVE AUTHORIZED THE ORDER FOR ADMISSION TO AN IN-PATIENT STATUS. (Sonia Hernandez MD) Problem List: (1) Cellulitis of left leg Status: Acute Plan: Patient evaluated in ED for rapidly progressive left posterior thigh lesion. This is concerning for cellulitis given the rapid progression, leukocytosis, possibly MRSA. There is no area of fluctuance warranting IND at this time. Plan: Admit Administer IV antibiotics: Levaquin and cefepime 1 in the ED. Vancomycin and levofloxacin ordered in the ED 1. Continue vancomycin at 1.5g every 12 hours with pharmacy consult, goal trough 1520 Monitor vital signs closely Blood culture obtained in ED and pending If begins to have spontaneous discharge, collect one culture Repeat CBC in the morning to monitor Add ESR to assess for systemic inflammation Pain control with Ibuprofen, [place], Morphine PRN Consider steroids if not showing improvement or if symptoms worsen Consider soft tissue ultrasound if concern for abscess (2) Leukocytosis Status: Acute Plan: Patient notes have a white count of 26,000, with neutrophil count 88%. Likely related to cellulitis. She is afebrile. Plan: Treat presumptive etiology, i.e. cellulitis, as above Repeat CBC in the morning with ESR (3) Hypothyroidism Status: Chronic Plan: Continue home dose Levothyroxine 125mcg daily (4) Pre-diabetes Status: Acute Plan: Patient is on Metformin at home; holding this, will give Novolog PRN via supplemental sliding scale protocol, Accucheks per protocol Diabetic diet for now (5) Hypertension Status: Chronic Plan: Chronic. BP at goal (<140/90) at admission. On lisinopril 2.5mg daily. Will continue. Will give Clonidine PRN SBP >180/100 Continue 81mg aspirin (6) Dyslipidemia Status: Acute Plan: Continue home dose pravastatin 40mg daily (7) Elevated liver function tests Status: Acute Plan: Noted. She was seen in March 2017 and noted to have mildly elevated liver enzymes with they are higher today. Plan: Repeat liver enzymes in the morning Consider ultrasound of the liver if continuing to be elevated (8) Fluids/Electrolytes/Nutrition/Prophylaxis Status: Acute Plan: Fluids: tolerating PO Electrolytes: monitor and replete as needed Nutrition: diabetic diet DVT Prophylaxis: Early ambulation. Lovenox 40mg subQ q24hr. GI Prophylaxis: not indicated (Latha Bolden MD R1) Problem Qualifiers (1) Leukocytosis: Qualified Code: D72.829 - Leukocytosis, unspecified type Latha Bolden MD R1 May 21, 2017 14:25 Sonia Hernandez MD May 22, 2017 13:00
[2017-05-21] MEDS ORDERED: ACETAMINOPHEN 325 MG TAB PO PRN (14:45)
[2017-05-21] MEDS ORDERED: ONDANSETRON HCL 4 MG/2 ML VIAL IVP PRN (14:45)
[2017-05-21] MEDS ORDERED: MAGNESIUM HYDROXIDE SUSP 30 ML CUP PO PRN (14:45)
[2017-05-21] MEDS ORDERED: SENNOSIDES 8.6 MG TAB PO PRN (14:45)
[2017-05-21] MEDS ORDERED: LACTULOSE SYRUP 20 GM/30 ML CUP PO PRN (14:45)
[2017-05-21] MEDS ORDERED: NALOXONE HCL 0.4 MG/ML AMP IV PRN ×2 (14:45→20:30)
[2017-05-21] MEDS ORDERED: BISACODYL 10 MG SUPP RECTAL PRN (14:45)
[2017-05-21] MEDS ORDERED: Vancomycin Consult Pharmacy 1 EA OTHER SCH (15:00)
[2017-05-21] MEDS ORDERED: cloNIDine HCL 0.1 MG TAB PO PRN (15:15)
[2017-05-21] MEDS: ENOXAPARIN SODIUM 40 MG/0.4 ML SYRINGE SQ SCH (17:00)
[2017-05-21] MEDS ORDERED: ACETAMINOPHEN/HYDROcodone 325 MG/5 MG TAB PO PRN (20:30)
[2017-05-21] MEDS: DOCUSATE SODIUM 50 MG/SENNA 8.6 MG TAB PO SCH (21:00)
[2017-05-21] MEDS: INSULIN ASPART SUPPLEMENTAL SCALE SQ SCH (21:00)
[2017-05-21] MEDS ORDERED: SODIUM CHLORIDE 0.9% FLUSH 10 ML FLUSH IV FLUSH SCH (21:00)
[2017-05-21] MEDS: SODIUM CHLORIDE 0.9% FLUSH 10 ML FLUSH IV FLUSH SCH (22:12)
[2017-05-22] MEDS ORDERED: IBUPROFEN 400 MG TAB PO PRN (01:15)
[2017-05-22] MEDS ORDERED: NALOXONE HCL 0.4 MG/ML AMP IV PRN (01:15)
[2017-05-22] MEDS ORDERED: ACETAMINOPHEN/HYDROcodone 325 MG/5 MG TAB PO PRN (01:15)
[2017-05-22] MEDS ORDERED: MORPHINE SULFATE 4 MG/ML INJ IV PRN (01:15)
[2017-05-22 01:28] VITALS: BP 115/60; PULSE 69; RESP 20; TEMP 98.3
[2017-05-22] MEDS: ACETAMINOPHEN/HYDROcodone 325 MG/7.5 MG TAB PO PRN ×4 (01:39→21:27)
[2017-05-22 05:06] VITALS: BP 133/79; PULSE 78; RESP 20; TEMP 97.7
[2017-05-22 05:46] LABS: AUTOMATED NEUTROPHIL # 14.3 TH/MM3 (1.8-7.7); BASOPHIL % 0.2 % (0.0-2.0); EOSINOPHIL # 0.8 TH/MM3 (0-0.4); EOSINOPHIL % 4.6 % (0.0-4.0); HEMATOCRIT 42.1 % (35.0-46.0); HEMO FLAGS DIFF FINAL; LYMPH % 11.7 % (9.0-44.0); LYMPHOCYTE # 2.1 TH/MM3 (1.0-4.8); MEAN CELL VOLUME 93.2 FL (80.0-100.0); MEAN CORPUSCULAR HGB CONC 32.2 % (32.0-36.0); MONO % 4.2 % (0.0-8.0); NEUT % 79.3 % (16.0-70.0); PLATELET COUNT 257 TH/MM3 (150-450); RED BLOOD COUNT 4.52 MIL/MM3 (4.00-5.30); RED CELL DISTRIBUTION WIDTH 14.3 % (11.6-17.2)
[2017-05-22] MEDS: LEVOTHYROXINE SODIUM 125 MCG TAB PO SCH (05:53)
[2017-05-22] MEDS: INSULIN ASPART SUPPLEMENTAL SCALE SQ SCH ×4 (05:56→20:59)
[2017-05-22 06:00] LABS: ALT (GPT) 64 U/L (10-53); ANION GAP 10 MEQ/L (5-15); AST (GOT) 36 U/L (15-37); BICARBONATE 23.8 MEQ/L (21.0-32.0); CHLORIDE 106 MEQ/L (98-107); GLOMERULAR FILTRATION RATE 84 ML/MIN (>89); POTASSIUM 4.1 MEQ/L (3.5-5.1); SODIUM (NA) 140 MEQ/L (136-145)
[2017-05-22 06:01] LABS: ALKALINE PHOSPHATASE 117 U/L (45-117); TOTAL BILIRUBIN ADULT 0.5 MG/DL (0.2-1.0)
[2017-05-22 06:19] LABS: BLOOD UREA NITROGEN 13 MG/DL (7-18)
[2017-05-22] MEDS: LACTOBACILLUS ACIDOPHILUS TAB PO SCH ×2 (08:16→21:25)
[2017-05-22] MEDS: ASPIRIN 81 MG CHEW TAB CHEW SCH (08:17)
[2017-05-22] MEDS: DOCUSATE SODIUM 50 MG/SENNA 8.6 MG TAB PO SCH ×2 (08:17→21:00)
[2017-05-22] MEDS: LISINOPRIL 5 MG TAB PO SCH (08:19)
[2017-05-22] MEDS: CHOLECALCIFEROL (VIT D3) 1000 UNIT TAB PO SCH (08:19)
[2017-05-22] MEDS: SODIUM CHLORIDE 0.9% FLUSH 10 ML FLUSH IV FLUSH SCH ×2 (08:23→21:25)
[2017-05-22 08:39] VITALS: BP 129/65; PULSE 75; RESP 16; TEMP 98.6; O2SAT 96
[2017-05-22] MEDS ORDERED: PRAVASTATIN SOD 40 MG TAB PO SCH (09:00)
[2017-05-22 11:36] VITALS: BP 111/56; PULSE 66; RESP 16; TEMP 97.8; O2SAT 96
[2017-05-22] MEDS: VANCOMYCIN INJ 1,500 MG in SODIUM CHLORID 0.9% 500 ML INJ 500 ML IV SCH (13:44)
--- NOTE | 2017-05-22 13:56 | HHI.FPPN ---
Subjective Remarks No acute events overnight. Vital signs unremarkable. This morning she reports that the redness on her left medial/posterior thigh has improved. However there has been spreading of the erythema outside of the marked lines. Denies fevers, nausea/vomiting. She otherwise feels well. (Gricel Reid MD R2) Objective Vitals Vital Signs Date Time Temp Pulse Resp B/P Pulse Ox O2 Delivery O2 Flow Rate FiO2 05/22/17 11:36 97.8 66 16 111/56 96 05/22/17 08:39 98.6 75 16 129/65 96 05/22/17 05:06 97.7 78 20 133/79 05/22/17 03:22 18 05/22/17 01:28 98.3 69 20 115/60 05/21/17 22:40 18 05/21/17 20:41 98.6 80 20 131/63 96 05/21/17 19:23 97 21 05/21/17 17:15 98.4 73 15 120/64 97 05/21/17 16:17 75 16 132/78 99 (Gricel Reid MD R2) Result Diagram: 05/22/17 0525 05/22/17 0525 Objective Remarks GEN: Well-developed, well-nourished patient. No acute distress. SKIN: Skin is notable for large area of slightly raised erythema along the entire inner portion of the left upper thigh, extending to the posterior thigh. Enlarging erythema outside of the previously marked borders. Central region with 2cm bullae and overlying necrotic skin. There is no active drainage, bleeding, pus. No area of fluctuance. CV: Regular rate and rhythm without obvious murmurs LUNGS: Clear to auscultation bilaterally. Normal respiratory effort. No wheezes , rales, rhonchi. NEURO/PSYCH: Awake, alert. Appropriate insight and judgment. Normal speech Procedures Bedside I&D 05/22/17: Incision made in the middle of the bullae. Small amount of clear serosanguineous fluid drained from incision. No pus present. Performed by Dr. Della Morse Supervised by Dr. Hernandez (Gricel Reid MD R2) A/P Assessment and Plan 61-year-old female with history of hypertension, prediabetes, and hypothyroidism who presents to the ED with progressive lesion on the left posterior thigh. Admitted for cellulitis. Discharge Planning 1-2days pending improvement of cellulitis sdw Dr. Nery Bolden, Dr. Morse, and Dr. Hernandez (Gricel Reid MD R2 ) Attending Attestation The exam, history, and the medical decision-making described in the above note were completed with the assistance of the resident physician. I reviewed and agree with the findings presented. I attest that I had a [id number] encounter with the patient on the same day. (Sonia Hernandez MD) Problem List: (1) Cellulitis of left leg Status: Acute Plan: Rapidly progressive left posterior thigh lesion. Suspected cellulitis. Bedside I&D on 05/22/17 revealed serosanguineous fluid without evidence of pus. -Improving leukocytosis -Mildly elevated ESR -wound culture pending -blood culture NGTD -Consider steroids if not showing improvement or if symptoms worsen Medications: * Vancomycin (05/21--> * Levaquin 1 in the ED (05/21) (2) Leukocytosis Status: Acute Plan: See more detailed plan above (3) Hypothyroidism Status: Chronic Plan: Continue home dose Levothyroxine 125mcg daily (4) Pre-diabetes Status: Chronic Plan: Patient is on Metformin at home; holding this, will give Novolog PRN via supplemental sliding scale protocol, Accucheks per protocol Diabetic diet for now (5) Hypertension Status: Chronic Plan: Chronic. BP at goal (<140/90) at admission. -continue home lisinopril 2.5mg daily -Clonidine PRN -contine home Aspirin 81mg (6) Dyslipidemia Status: Chronic Plan: Continue home dose pravastatin 40mg daily (7) Elevated liver function tests Status: Resolved Plan: She was seen in March 2017 and noted to have mildly elevated liver enzymes. Slightly elevated on admission but not resolved. -continue to monitor (8) Fluids/Electrolytes/Nutrition/Prophylaxis Status: Acute Plan: Fluids: tolerating PO Electrolytes: monitor and replete as needed Nutrition: diabetic diet DVT Prophylaxis: Early ambulation. Lovenox 40mg subQ q24hr. GI Prophylaxis: not indicated (Gricel Reid MD R2) Problem Qualifiers (1) Leukocytosis: Qualified Code: D72.829 - Leukocytosis, unspecified type Gricel Reid MD R2 May 22, 2017 13:56 Sonia Hernandez MD May 23, 2017 09:12 Problem Qualifiers (1) Leukocytosis: Qualified Code: D72.829 - Leukocytosis, unspecified type Gricel Reid MD R2 May 22, 2017 13:56
[2017-05-22] MEDS ORDERED: diphenhydrAMINE HCL 25 MG CAP PO ONE (14:30)
[2017-05-22 16:12] VITALS: BP 126/60; PULSE 71; RESP 16; TEMP 98.2; O2SAT 98
[2017-05-22] MEDS: ENOXAPARIN SODIUM 40 MG/0.4 ML SYRINGE SQ SCH (17:00)
[2017-05-22 20:04] VITALS: BP 135/72; PULSE 71; RESP 18; TEMP 98.5; O2SAT 98
[2017-05-23] VITALS (7 sets, daily range): BP systolic 119–156; BP diastolic 65–80; PULSE 66–80; RESP 16–18; TEMP 96–98.4; O2SAT 95–99
[2017-05-23 05:16] LABS: AUTOMATED NEUTROPHIL # 7.7 TH/MM3 (1.8-7.7); BASOPHIL % 0.4 % (0.0-2.0); EOSINOPHIL # 0.6 TH/MM3 (0-0.4); EOSINOPHIL % 5.5 % (0.0-4.0); HEMO FLAGS DIFF FINAL; LYMPH % 18.3 % (9.0-44.0); MEAN CORPUSCULAR HEMOGLOBIN 30.2 PG (27.0-34.0); MEAN CORPUSCULAR HGB CONC 32.1 % (32.0-36.0); MONO % 5.8 % (0.0-8.0); PLATELET COUNT 263 TH/MM3 (150-450); RED BLOOD COUNT 4.25 MIL/MM3 (4.00-5.30); RED CELL DISTRIBUTION WIDTH 14.2 % (11.6-17.2)
[2017-05-23 05:40] LABS: ALT (GPT) 45 U/L (10-53); ANION GAP 5 MEQ/L (5-15); AST (GOT) 20 U/L (15-37); BICARBONATE 27.9 MEQ/L (21.0-32.0); BLOOD UREA NITROGEN 14 MG/DL (7-18); CHLORIDE 109 MEQ/L (98-107); GLOMERULAR FILTRATION RATE 81 ML/MIN (>89); POTASSIUM 3.8 MEQ/L (3.5-5.1); SODIUM (NA) 142 MEQ/L (136-145)
[2017-05-23 05:41] LABS: ALKALINE PHOSPHATASE 109 U/L (45-117); TOTAL BILIRUBIN ADULT 0.3 MG/DL (0.2-1.0)
[2017-05-23] MEDS: LEVOTHYROXINE SODIUM 125 MCG TAB PO SCH (06:43)
[2017-05-23] MEDS: INSULIN ASPART SUPPLEMENTAL SCALE SQ SCH ×4 (06:48→21:00)
--- NOTE | 2017-05-23 08:00 | HHI.FPPN ---
Subjective Remarks Patient was seen and examined this morning. She had itching and IV site irritation during Vancomycin administration yesterday afternoon; rate of infusion was decreased and Benadryl was administered. This helped her tremendously. This morning she denies fevers, chills, n/v/d/c, new rash, chest pain, sob. She has been eating well. She has been ambulating. She wants to be moved to a room where she can shower. (Latha Bolden MD R1) Objective Vitals Vital Signs Date Time Temp Pulse Resp B/P Pulse Ox O2 Delivery O2 Flow Rate FiO2 05/23/17 07:11 97.9 66 16 119/66 97 05/23/17 04:07 98.0 71 18 156/72 98 05/23/17 00:00 98.4 74 18 131/74 98 05/22/17 20:04 98.5 71 18 135/72 98 05/22/17 16:12 98.2 71 16 126/60 98 05/22/17 11:36 97.8 66 16 111/56 96 05/22/17 08:39 98.6 75 16 129/65 96 (Latha Bolden MD R1) Result Diagram: 05/23/17 0430 05/23/17 0430 Objective Remarks GEN: Well-developed, well-nourished patient. No apparent distress. IV sites normal in appearance and right hand. SKIN: Skin is notable for large area of slightly raised erythema along the entire inner portion of the left upper thigh, extending to the posterior thigh. Enlarging erythema outside of the previously marked borders. Central region with 2cm bullae and overlying necrotic skin, which is stable. Some dried serous fluid is noted on the bed sheet. No area of fluctuance. Her lesion is remarked by the nursing staff overnight, expanding in erythema only, by about 1-2 inches in each side. This erythema is not warm to touch. CV: Regular rate and rhythm without obvious murmurs LUNGS: Clear to auscultation bilaterally. Normal respiratory effort. No wheezes , rales, rhonchi. NEURO/PSYCH: Awake, alert. Appropriate insight and judgment. Normal speech Procedures Bedside I&D 05/22/17: Incision made in the middle of the bullae. Small amount of clear serosanguineous fluid drained from incision. No pus present. Performed by Dr. Della Morse Supervised by Dr. Hernandez Medications and IVs Inpatient Medications Acetaminophen (Tylenol) 650 mg Q4H PRN PO TEMP > 100.4; Start 05/21/17 at 14:45 Acetaminophen/ Hydrocodone Bitart ([place] 5-325 Mg) 1 tab Q4H PRN PO PAIN SCALE 3 TO 5; Start 05/22/17 at 01:15 Acetaminophen/ Hydrocodone Bitart ([place] 7.5-325 Mg) 1 tab Q4H PRN PO PAIN SCALE 6 TO 10 Last administered on 05/22/17 21:27; Start 05/22/17 at 01:15 Aspirin (Aspirin Chew) 81 mg DAILY CHEW Last administered on 05/23/17 10:14; Start 05/22/17 at 09:00 Bisacodyl (Dulcolax Supp) 10 mg DAILY PRN RECTAL SEVERE CONSITIPATION; Start at 14:45 Cholecalciferol (Vitamin D3) 2,000 units DAILY PO Last administered on 10:15; Start 05/22/17 at 09:00 Clonidine (Catapres) 0.1 mg Q6H PRN PO SBP> OR = 180, DBP> OR = 100; Start 05/21 at 15:15 Diphenhydramine HCl (Benadryl) 25 mg Q6HR PRN PO ITCHING; Start 05/23/17 at 09: 00 Enoxaparin Sodium (Lovenox Inj) 40 mg Q24H SQ ; Start 05/21/17 at 17:00 Ibuprofen (Motrin) 400 mg Q6H PRN PO PAIN SCALE 1 TO 2; Start 05/22/17 at 01:15 Insulin Aspart (NovoLOG SUPPLEMENTAL SCALE) 1 ACHS SLIDING SCALE SQ ; Start 05/21/17 at 21:00 Lactobacillus Acidophilus (Lactinex) 2 tab Q12HR PO Last administered on 10:14; Start 05/22/17 at 09:00 Lactulose 30 ml 30 ml DAILY PRN PO SEVERE CONSITIPATION; Start 05/21/17 at 14:45 Levofloxacin/ Dextrose (Levaquin 500 Mg Premix Inj) 100 ml @ 100 mls/hr ONCE ONCE IV Last administered on 05/21/17 14:17; Start 05/21/17 at 12:45; Stop at 13:44; Status DC Levothyroxine Sodium (Synthroid) 125 mcg DAILY@06 PO Last administered on 06:43; Start 05/22/17 at 06:00 Lisinopril (Prinivil) 2.5 mg DAILY PO Last administered on 05/23/17 10:15; Start 05/22/17 at 09:00 Magnesium Hydroxide (Milk Of Magnesia Liq) 30 ml Q12H PRN PO MILD - MODERATE CONSTIPATION; Start 05/21/17 at 14:45 Menthol/Methyl Salicylate ([place]eland Zafar Oint) 1 applic UNSCH PRN TOPICAL MUSCLE PAIN ; Start 05/23/17 at 09:00 Miscellaneous Information SPECIFIC LAB TO BE ... ONCE ONCE .XX ; Start 05/24 at 12:45; Stop 05/24/17 at 12:46 Morphine Sulfate (Morphine Inj) 2 mg Q3H PRN IV BREAKTHROUGH PAIN; Start at 01:15 Naloxone HCl (Narcan Inj) 0.4 mg UNSCH PRN IV SEE LABEL COMMENTS; Start at 01:15 Ondansetron HCl (Zofran Inj) 4 mg Q6H PRN IVP NAUSEA OR VOMITING; Start at 14:45 Ondansetron HCl 4 mg 4 mg ONCE ONCE IVP Last administered on 05/21/17 12:51; Start 05/21/17 at 12:30; Stop 05/21/17 at 12:36; Status DC Pharmacy Profile Note (Vancomycin Consult Pharmacy) 0 ml @ 0 mls/hr UNSCH OTHER ; Start 05/21/17 at 15:00 Pravastatin Sodium (Pravachol) 40 mg HS PO ; Start 05/23/17 at 21:00 Senna/Docusate Sodium (Estee-Colace) 1 tab BID PO Last administered on 05/23/17 10:15; Start 05/21/17 at 21:00 Sennosides (Senokot) 17.2 mg Q12H PRN PO MODERATE - SEVERE CONSTIPATION; Start 05/21/17 at 14:45 Sodium Chloride (NS Flush) 2 ml BID IV FLUSH Last administered on 05/23/17 10: 14; Start 05/21/17 at 21:00 Vancomycin HCl 1000 mg/Sodium Chloride 250 ml @ 250 mls/hr ONCE ONCE IV Last administered on 05/21/17t 12:56; Start 05/21/17 at 12:45; Stop 05/21/17 at 13:44; Status DC Vancomycin HCl 1500 mg/Sodium Chloride 515 ml @ 257.5 mls/ hr Q24H IV Last administered on 05/22/17t 13:44; Start 05/22/17 at 13:00 (Latha Bolden MD R1) Urinary Catheter: No (Latha Bolden MD R1) Vascular Central Line Catheter: No (Latha Bolden MD R1) A/P Assessment and Plan 61-year-old female with history of hypertension, prediabetes, and hypothyroidism who presents to the ED with progressive lesion on the left posterior thigh. Admitted for inpatient management of cellulitis. Discharge Planning Possible discharge home tomorrow, pending improvement of cellulitis. Continued IV antibiotics indicated today. christiano Hernandez (Latha Bolden MD R1) Attending Attestation Patient seen and examined. Case reviewed and discussed with the resident team. Agree with plan of care as discussed with me and documented in the resident note. (Sonia Hernandez MD) Problem List: (1) Cellulitis of left leg Status: Acute Plan: Plan: -Continue vancomycin IV, pharmacy consulted for titration of dosing -Continue supportive care including warm compresses as needed -Possible discharge tomorrow improving -Upon discharge, patient will need to continue medications for her cellulitis, possibly Bactrim or other antibiotic covering MRSA Hospital Course: -Rapidly progressive left posterior thigh lesion. Suspected cellulitis. Bedside I&D on 05/22/17 revealed sero-sanguineous fluid without evidence of pus. -Leukocytosis has resolved -Mildly elevated ESR, not appearing to be clinically significant -Wound culture pending -Blood culture NGTD -Consider steroids if not showing improvement or if symptoms worsen, does not appear to be indicated on assessment today -Patient had itching with IV administration of vancomycin yesterday, improved with Benadryl. Benadryl 25 mg by mouth PRN ordered -Of note, her MRSA nasopharyngeal screen is negative Medications: * Vancomycin (05/21--> ) * Levaquin 1 in the ED (05/21) (2) Leukocytosis Status: Resolved Plan: Resolved. See more detailed plan above (3) Hypothyroidism Status: Chronic Plan: Continue home dose Levothyroxine 125mcg daily (4) Pre-diabetes Status: Chronic Plan: Patient is on Metformin at home; holding this, will give Novolog PRN via supplemental sliding scale protocol, Accucheks per protocol. Not requiring any SSI over the course of hospital stay. Diabetic diet (5) Hypertension Status: Chronic Plan: Chronic. BP at goal. -continue home lisinopril 2.5mg daily -Clonidine PRN -continue home Aspirin 81mg (6) Dyslipidemia Status: Chronic Plan: Continue home dose pravastatin 40mg daily (7) Elevated liver function tests Status: Resolved Plan: She was seen in March 2017 and noted to have mildly elevated liver enzymes. Slightly elevated on admission but not resolved. -continue to monitor (8) Fluids/Electrolytes/Nutrition/Prophylaxis Status: Acute Plan: Fluids: tolerating PO Electrolytes: monitor and replete as needed Nutrition: diabetic diet DVT Prophylaxis: Ambulation. Lovenox 40mg subQ q24hr ordered - patient is refusing. GI Prophylaxis: not indicated (Latha Bolden MD R1) Problem Qualifiers (1) Leukocytosis: Qualified Code: D72.829 - Leukocytosis, unspecified type Latha Bolden MD R1 May 23, 2017 08:00 Sonia Hernandez MD May 24, 2017 09:28
[2017-05-23] MEDS ORDERED: diphenhydrAMINE HCL 25 MG CAP PO PRN (09:00)
[2017-05-23] MEDS ORDERED: MENTHOL/METHYL SALICYLATE OINT 30 GM TUBE TOPICAL PRN (09:00)
[2017-05-23] MEDS: LACTOBACILLUS ACIDOPHILUS TAB PO SCH ×2 (10:14→21:56)
[2017-05-23] MEDS: SODIUM CHLORIDE 0.9% FLUSH 10 ML FLUSH IV FLUSH SCH ×2 (10:14→21:00)
[2017-05-23] MEDS: ASPIRIN 81 MG CHEW TAB CHEW SCH (10:14)
[2017-05-23] MEDS: LISINOPRIL 5 MG TAB PO SCH (10:15)
[2017-05-23] MEDS: DOCUSATE SODIUM 50 MG/SENNA 8.6 MG TAB PO SCH ×2 (10:15→21:00)
[2017-05-23] MEDS: CHOLECALCIFEROL (VIT D3) 1000 UNIT TAB PO SCH (10:15)
[2017-05-23] MEDS: VANCOMYCIN INJ 1,500 MG in SODIUM CHLORID 0.9% 500 ML INJ 500 ML IV SCH (13:51)
[2017-05-23] MEDS: ENOXAPARIN SODIUM 40 MG/0.4 ML SYRINGE SQ SCH (17:00)
[2017-05-23] MEDS ORDERED: PRAVASTATIN SOD 40 MG TAB PO SCH (21:00)
[2017-05-23] MEDS: ACETAMINOPHEN/HYDROcodone 325 MG/7.5 MG TAB PO PRN (21:55)
[2017-05-24 00:07] VITALS: BP 134/63; PULSE 78; RESP 18; TEMP 96.2; O2SAT 98
[2017-05-24] MEDS: LEVOTHYROXINE SODIUM 125 MCG TAB PO SCH (04:47)
[2017-05-24] MEDS: ACETAMINOPHEN/HYDROcodone 325 MG/7.5 MG TAB PO PRN ×2 (04:48→15:27)
[2017-05-24] MEDS: INSULIN ASPART SUPPLEMENTAL SCALE SQ SCH ×2 (04:50→11:00)
[2017-05-24 07:42] LABS: AUTOMATED NEUTROPHIL # 4.7 TH/MM3 (1.8-7.7); BASOPHIL # 0.1 TH/MM3 (0-0.2); BASOPHIL % 0.7 % (0.0-2.0); EOSINOPHIL # 0.4 TH/MM3 (0-0.4); EOSINOPHIL % 5.4 % (0.0-4.0); HEMATOCRIT 37.1 % (35.0-46.0); HEMO FLAGS DIFF FINAL; LYMPHOCYTE # 2.3 TH/MM3 (1.0-4.8); MEAN CELL VOLUME 92.2 FL (80.0-100.0); MEAN CORPUSCULAR HEMOGLOBIN 30.6 PG (27.0-34.0); MEAN CORPUSCULAR HGB CONC 33.2 % (32.0-36.0); MONO % 7.1 % (0.0-8.0); NEUT % 57.8 % (16.0-70.0); PLATELET COUNT 311 TH/MM3 (150-450); RED BLOOD COUNT 4.02 MIL/MM3 (4.00-5.30); RED CELL DISTRIBUTION WIDTH 14.2 % (11.6-17.2); WHITE BLOOD COUNT 8.1 TH/MM3 (4.0-11.0)
[2017-05-24 08:00] VITALS: BP 133/63; PULSE 63; RESP 20; TEMP 96.3; O2SAT 97
[2017-05-24] MEDS: DOCUSATE SODIUM 50 MG/SENNA 8.6 MG TAB PO SCH (09:11)
[2017-05-24] MEDS: LACTOBACILLUS ACIDOPHILUS TAB PO SCH (09:11)
[2017-05-24] MEDS: CHOLECALCIFEROL (VIT D3) 1000 UNIT TAB PO SCH (09:11)
[2017-05-24] MEDS: ASPIRIN 81 MG CHEW TAB CHEW SCH (09:11)
[2017-05-24] MEDS: LISINOPRIL 5 MG TAB PO SCH (09:11)
[2017-05-24] MEDS: SODIUM CHLORIDE 0.9% FLUSH 10 ML FLUSH IV FLUSH SCH (09:13)
--- NOTE | 2017-05-24 11:24 | HHI.FPPN ---
Subjective Remarks Patient was seen and evaluated this morning. She states that the redness has significantly improved overnight. She continues to have pain when ambulating. She denies chest pain, heart palpitations, shortness of breath, nausea and vomiting. She would like to stay in the hospital until the wound culture is final and susceptibility has resulted. (Myra Morse MD R1) Objective Vitals Vital Signs Date Time Temp Pulse Resp B/P Pulse Ox O2 Delivery O2 Flow Rate FiO2 05/24/17 08:00 96.3 63 20 133/63 97 05/24/17 00:07 96.2 78 18 134/63 98 05/23/17 20:00 97.2 80 18 141/65 95 05/23/17 16:00 96.0 74 17 138/65 99 05/23/17 13:20 96.6 68 16 136/80 97 05/23/17 11:15 97.4 70 16 136/69 97 I/O 05/23/17 05/23/17 05/23/17 05/24/17 05/24/17 05/24/17 07:00 15:00 23:00 07:00 15:00 23:00 Intake Total 480 ml 360 ml Balance 480 ml 360 ml Intake Oral 480 ml 360 ml # Voids 2 2 (Myra Morse MD R1) Result Diagram: 05/24/17 0649 05/23/17 0430 Other Results Wounds Culture - right posterior thigh * Gram Stain - FINAL: Rare WBC; no organisms seen * Wound Culture - FINAL: Rare growth normal skin darleen; no anaerobes isolated. Objective Remarks GEN: Well-developed, well-nourished patient. No apparent distress. SKIN: Skin is notable for large area of slightly raised erythema along the entire inner portion of the left upper thigh, extending to the posterior thigh. Erythema improving; today, well within the previously marked borders. Noted central region with 2cm bullae, which is stable. No drainage noted today. No area of fluctuance. CV: Regular rate and rhythm without obvious murmurs LUNGS: Clear to auscultation bilaterally. Normal respiratory effort. No wheezes , rales, rhonchi. NEURO/PSYCH: Awake, alert. Appropriate insight and judgment. Normal speech Procedures Bedside I&D 05/22/17: Incision made in the middle of the bullae. Small amount of clear serosanguineous fluid drained from incision. No pus present. Performed by Dr. Myra Morse Supervised by Dr. Hernandez Medications and IVs Current Medications Medications (Trade) Dose Ordered Sig/[place]ia Route Start Time Stop Time Status Last Admin (NS Flush) 2 ml UNSCH PRN IV FLUSH 05/21/17 14:15 (NS Flush) 2 ml BID IV FLUSH 05/21/17 21:00 05/24/17 09:13 (Aspirin Chew) 81 mg DAILY CHEW 05/22/17 09:00 05/24/17 09:11 (Synthroid) 125 mcg DAILY@06 PO 05/22/17 06:00 05/24/17 04:47 (Vitamin D3) 2,000 units DAILY PO 05/22/17 09:00 05/24/17 09:11 (Prinivil) 2.5 mg DAILY PO 05/22/17 09:00 05/24/17 09:11 (Tylenol) 650 mg Q4H PRN PO 05/21/17 14:45 (Zofran Inj) 4 mg Q6H PRN IVP 05/21/17 14:45 (Lovenox Inj) 40 mg Q24H SQ 05/21/17 17:00 (Estee-Colace) 1 tab BID PO 05/21/17 21:00 05/24/17 09:11 (Milk Of Magnesia Liq) 30 ml Q12H PRN PO 05/21/17 14:45 (Senokot) 17.2 mg Q12H PRN PO 05/21/17 14:45 (Dulcolax Supp) 10 mg DAILY PRN RECTAL 05/21/17 14:45 Lactulose 30 ml 30 ml DAILY PRN PO 05/21/17 14:45 Vancomycin HCl 1500 mg/Sodium Chloride 515 ml @ 257.5 mls/ hr Q24H IV 05/22/17 13:00 05/23/17 13:51 (Vancomycin Consult Pharmacy) 0 ml @ 0 mls/hr UNSCH OTHER 05/21/17 15:00 (Catapres) 0.1 mg Q6H PRN PO 05/21/17 15:15 Miscellaneous Information SPECIFIC LAB TO BE ... ONCE ONCE .XX 05/24/17 12:45 05/24/17 12:46 (Motrin) 400 mg Q6H PRN PO 05/22/17 01:15 ([place] 5-325 Mg) 1 tab Q4H PRN PO 05/22/17 01:15 ([place] 7.5-325 Mg) 1 tab Q4H PRN PO 05/22/17 01:15 05/24/17 04:48 (Morphine Inj) 2 mg Q3H PRN IV 05/22/17 01:15 05/23/17 23:16 (Narcan Inj) 0.4 mg UNSCH PRN IV 05/22/17 01:15 (Lactinex) 2 tab Q12HR PO 05/22/17 09:00 05/24/17 09:11 (Pravachol) 40 mg HS PO 05/23/17 21:00 05/23/17 21:56 (Benadryl) 25 mg Q6HR PRN PO 05/23/17 09:00 05/23/17 13:51 (Leland Zafar Oint) 1 applic UNSCH PRN TOPICAL 05/23/17 09:00 (Myra Morse MD R1) Urinary Catheter: No (Myra Morse MD R1) Vascular Central Line Catheter: No (Myra Morse MD R1) A/P Assessment and Plan 61-year-old female with history of hypertension, prediabetes, and hypothyroidism who presents to the ED with progressive lesion on the left posterior thigh. Admitted for inpatient management of cellulitis. Discharge Planning Possible discharge home today following administration of IV antibiotic. christiano Hernandez (Myra Morse MD R1) Attending Attestation Patient seen and examined. Case reviewed and discussed with the resident team. Agree with plan of care as discussed with me and documented in the resident note. Final wound culture just shows normal skin darleen and her clinical symptoms have improved dramatically. Her MRSA nasal swab was negative. Will plan to d/c to home on Bactrim DS to complete out 10 day course with close fu with her PCP in the next few days. (Sonia Hernandez MD) Problem List: (1) Cellulitis of left leg Status: Acute Plan: Improved. Plan: * Continue vancomycin IV, pharmacy consulted for titration of dosing. * Continue supportive care including warm compresses as needed. * Upon discharge, patient will need to continue medications for her cellulitis, possibly Bactrim. Hospital Course: * Rapidly progressive left posterior thigh lesion. Suspected cellulitis. Bedside I&D on 05/22/17 revealed sero-sanguineous fluid without evidence of pus. * Leukocytosis has resolved. * Mildly elevated ESR, not appearing to be clinically significant. * Wound culture final - see above. * Blood culture final - no growth x3days * Patient had itching with IV administration of vancomycin 05/22, improved with Benadryl. Benadryl 25 mg by mouth PRN ordered. * Of note, her MRSA nasopharyngeal screen is negative Medications: * Vancomycin (05/21-->) * Levaquin 1 in the ED (05/21) (2) Leukocytosis Status: Resolved Plan: Resolved. See more detailed plan above. (3) Hypothyroidism Status: Chronic Plan: Continue home dose Levothyroxine 125mcg daily. (4) Pre-diabetes Status: Chronic Plan: Patient is on Metformin at home; holding this, will give Novolog PRN via supplemental sliding scale protocol, Accucheks per protocol. Not requiring any SSI over the course of hospital stay. Diabetic diet. (5) Hypertension Status: Chronic Plan: Chronic. BP at goal. * Continue home lisinopril 2.5mg daily. * Clonidine PRN. * Continue home Aspirin 81mg. (6) Dyslipidemia Status: Chronic Plan: Continue home dose pravastatin 40mg daily. (7) Elevated liver function tests Status: Resolved Plan: She was seen in March 2017 and noted to have mildly elevated liver enzymes. Slightly elevated on admission but not resolved. * Continue to monitor. (8) Fluids/Electrolytes/Nutrition/Prophylaxis Status: Acute Plan: Fluids: * Tolerating PO Electrolytes: * Monitor and replete as needed Nutrition: * Diabetic diet DVT Prophylaxis: * Ambulation. * Lovenox 40mg subQ q24hr ordered - patient is refusing. GI Prophylaxis: * Not indicated (Myra Morse MD R1) Problem Qualifiers (1) Leukocytosis: Qualified Code: D72.829 - Leukocytosis, unspecified type Myra Morse MD R1 May 24, 2017 11:24 Sonia Hernandez MD May 24, 2017 13:15
[2017-05-24 12:02] VITALS: BP 133/74; PULSE 68; RESP 20; TEMP 97.5; O2SAT 98
[2017-05-24] MEDS ORDERED: PHARMACY ORDERED LAB ONE (12:45)
[2017-05-24] MEDS ORDERED: HYDR-3516 PO (14:05)
[2017-05-24] MEDS ORDERED: SULF1TAB23 PO (14:05)
--- NOTE | 2017-05-24 14:49 | HHI.DCPOC ---
Discharge Care Plan Diagnosis: (1) Cellulitis of left leg Goals to Promote Your Health * To prevent worsening of your condition and complications * To maintain your health at the optimal level Directions to Meet Your Goals Take your medications as prescribed Follow your dietary instruction Follow activity as directed Keep your appointments as scheduled Take your immunizations and boosters as scheduled If your symptoms worsen call your PCP, if no PCP go to Urgent Care Center or Emergency Room Smoking is Dangerous to Your Health. Avoid second hand smoke Call the 24-hour hour crisis hotline for domestic abuse at Myra Morse MD R1 May 24, 2017 14:49
[2017-05-24 15:00] VITALS: BP 129/69; PULSE 64; RESP 20; TEMP 96.5; O2SAT 97
--- NOTE | 2017-05-26 17:35 | HHI.DS ---
Discharge Summary Admission Date May 21, 2017 at 14:01 Discharge Date: May 24, 2017 Admitting Diagnosis cellulitis, leukocytosis (1) Cellulitis of left leg Diagnosis: Principal Plan: Improved. Plan: * Continue vancomycin IV, pharmacy consulted for titration of dosing. * Continue supportive care including warm compresses as needed. * Upon discharge, patient will need to continue medications for her cellulitis, possibly Bactrim. Hospital Course: * Rapidly progressive left posterior thigh lesion. Suspected cellulitis. Bedside I&D on 05/22/17 revealed sero-sanguineous fluid without evidence of pus. * Leukocytosis has resolved. * Mildly elevated ESR, not appearing to be clinically significant. * Wound culture final - see above. * Blood culture final - no growth x3days * Patient had itching with IV administration of vancomycin 05/22, improved with Benadryl. Benadryl 25 mg by mouth PRN ordered. * Of note, her MRSA nasopharyngeal screen is negative Medications: * Vancomycin (05/21-->) * Levaquin 1 in the ED (05/21) (2) Leukocytosis Diagnosis: Secondary Plan: Resolved. See more detailed plan above. (3) Hypothyroidism Diagnosis: Secondary Plan: Continue home dose Levothyroxine 125mcg daily. (4) Pre-diabetes Diagnosis: Secondary Plan: Patient is on Metformin at home; holding this, will give Novolog PRN via supplemental sliding scale protocol, Accucheks per protocol. Not requiring any SSI over the course of hospital stay. Diabetic diet. (5) Hypertension Diagnosis: Secondary Plan: Chronic. BP at goal. * Continue home lisinopril 2.5mg daily. * Clonidine PRN. * Continue home Aspirin 81mg. (6) Dyslipidemia Diagnosis: Secondary Plan: Continue home dose pravastatin 40mg daily. (7) Elevated liver function tests Diagnosis: Secondary Plan: She was seen in March 2017 and noted to have mildly elevated liver enzymes. Slightly elevated on admission but not resolved. * Continue to monitor. (8) Fluids/Electrolytes/Nutrition/Prophylaxis Diagnosis: Secondary Plan: Fluids: * Tolerating PO Electrolytes: * Monitor and replete as needed Nutrition: * Diabetic diet DVT Prophylaxis: * Ambulation. * Lovenox 40mg subQ q24hr ordered - patient is refusing. GI Prophylaxis: * Not indicated Procedures Bedside I&D 05/22/17: Incision made in the middle of the bullae. Small amount of clear serosanguineous fluid drained from incision. No pus present. Performed by Dr. Myra Morse Supervised by Dr. Hernandez Brief History Ms. Spencer is a 61-year-old female with a history of hypertension, prediabetes and hypothyroidism who presents to the ED with a three-day history of worsening left posterior thigh rash associated with pain. He knows that she first noticed symptoms on Wednesday evening around 6 PM shortly after gardening. At the time she was wearing shorts and had been gardening without incident for a while. She states she was standing while gardening and did not sit, however she does know she lives near [facility] with lots of potential wildlife there. She does not remember being bitten by a bug but she thinks she might have given that she noticed a nickel-sized red tyron on the back of her thigh shortly after coming inside. Quickly progressed to quarter and then half dollar size prior to her going to bed. The next morning she noticed that the lesion was approximately the size of her hand and she does commenced to ice the area. This did not help much so she tried heating pads at night. She came to the ED on 05/20/17 because she had nausea as well as a growing lesion but decided to leave without being seen. This morning, she noticed a black spot in the middle of the thigh lesion and decided to come in because this worried her. The pain at its worse is 10/10 when she is moving and is 0/10 when she is completely still. She has never had any lesions like this. She denies any history of skin infections and denies ever being told she has MRSA. She denies any fevers at home. She had one episode of nausea yesterday but this has resolved. She does endorse a continued loss of appetite. She denies any episodes of vomiting, diarrhea, upper respiratory infection, diaphoresis, chest pain, shortness of breath. She denies that the lesion has had any drainage or bleeding. She denies itching. She notes no pain when she is still but has significant pain of the posterior left thigh when she moves it. She notes no joint pain. She notes chronic anxiety but does not take any medications for this. CBC/BMP: 05/24/17 0649 05/23/17 0430 Significant Findings Laboratory Tests Test 05/24/17 06:49 Eosinophils (%) (Auto) 5.4 % (0.0-4.0) PE at Discharge GEN: Well-developed, well-nourished patient. No apparent distress. SKIN: Skin is notable for large area of slightly raised erythema along the entire inner portion of the left upper thigh, extending to the posterior thigh. Erythema improving; today, well within the previously marked borders. Noted central region with 2cm bullae, which is stable. No drainage noted today. No area of fluctuance. CV: Regular rate and rhythm without obvious murmurs LUNGS: Clear to auscultation bilaterally. Normal respiratory effort. No wheezes , rales, rhonchi. NEURO/PSYCH: Awake, alert. Appropriate insight and judgment. Normal speech Transfer Summary 61-year-old female with history of hypertension, prediabetes, and hypothyroidism who presented to the ED with a rapidly over the progressive lesion on the left posterior thigh concerning for erysipelas/cellulitis/ abscess. She was initially admitted to observation for inpatient antibiotics but was later admitted to inpatient given continue IV antibiotic need. She is also in significant pain at time of admission with a noted white count 26,000. In the ED, patient got vancomycin and Levaquin 1, and vancomycin alone was continued during her inpatient stay. On day 2 a bedside I&D was performed and wound culture was sent for analysis. Routine workup showed mildly elevated ESR and normalized white count on day 2. Pain control was not difficult, and patient received ibuprofen and [place] when necessary. The lesion was on the medial and posterior left thigh, with continued progression of the area of involvement over the first 2448 hours. Hypothyroidism and hypertension were treated with home medications. Prediabetes was treated with a sliding scale. Blood cultures and wound cultures were negative. Patient was discharged on day 3 of stay given overall symptomatic improvement. She was discharged with Bactrim DS 1 tab by mouth twice a day for 10 days. Follow up with her PCP within 1-2 weeks. She was discharged in stable condition. Pt Condition on Discharge: Stable Discharge Disposition: Discharge Home Discharge Instructions DIET: Follow Instructions for: As Tolerated, No Restrictions Activities you can perform: Regular-No Restrictions Follow up Referrals: PCP Follow-up - 1 Week New Medications: Sulfamethoxazole-Trimethoprim (Sulfamethoxazole-Trimethoprim) 800-160 Mg Tab 1 TAB PO BID Infection #20 Ref 0 TAB Hydrocodone-Acetaminophen (Hydrocodone-Acetaminophen) 5-325 mg Tab 1-2 TAB PO Q4-6H PRN PAIN #14 TAB Continued Medications: Aspirin (Aspirin Low Dose) 81 Mg Chew 81 MG CHEW DAILY Ref 0 TAB Cholecalciferol (Vitamin D) 2,000 Unit Cap 1 CAP PO DAILY #90 Ref 3 CAP Levothyroxine (Levothyroxine) 125 Mcg Tab 125 MCG PO DAILY Please make f/u appointment. Thyroid #90 Ref 1 TAB Lisinopril (Lisinopril) 2.5 Mg Tab 2.5 MG PO DAILY #30 Ref 3 TAB Metformin (Metformin) 500 Mg Tab 500 MG PO BID With a meal Blood Sugar Management #180 Ref 0 TAB Simvastatin (Simvastatin) 20 Mg Tab 20 MG PO DAILY Cholesterol Management #90 Ref 0 TAB Latha Bolden MD R1 May 26, 2017 17:35
== END 2017-05-24 18:51 | disposition home or self-care (01) | DRG 603 ==
LOC: NEPC 11:34 → NEDA 14:01 → NEPHCDU 16:42 → N07B 05-23 13:02
PROVIDERS: ADMIT Family Medicine; ATTEND Family Medicine
DX: L03.116 Cellulitis of left lower limb (principal); I10 Essential (primary) hypertension; E03.9 Hypothyroidism, unspecified; E11.9 Type 2 diabetes mellitus without complications; E78.5 Hyperlipidemia, unspecified; F41.9 Anxiety disorder, unspecified; Z79.82 Long term (current) use of aspirin
CPT/HCPCS: 76937; 80053; 82948; 83605; 85025; 85652; 87040; 87070; 87205; 87641; 96365; 96375; J1956; J2270; J2405; J3370; J7030; J7040; J7050

== ENCOUNTER 2017-05-30 14:52 | Emergency (ER) | payer MEDICAID, OTHER ==
[~2017-05-30] VITALS: Ht 167.6 cm; Wt 105.0 kg
[~2017-05-30 14:52] MED LIST changes: -BENZ1CAP8 PO; +HYDR-3516 PO; -MULT1TAB84 PO; +SULF1TAB23 PO; -TYLETAB34 PO
[2017-05-30 14:53] VITALS: BP 163/80; PULSE 86; RESP 18; TEMP 97.9; O2SAT 98
--- NOTE | 2017-05-30 16:50 | PD ---
HPI Chief Complaint: Skin Problem Time Seen by Provider: 14:59 Travel History International Travel<30 days: No Contact w/Intl Traveler<30days: No Traveled to known affect area: No History of Present Illness HPI Patient is a 61-year-old female presents emergency department for evaluation of left leg abscess. Patient was just admitted to the hospital was on IV anabiotic 's for a few days and discharged on Bactrim. She is concerned because she had a little bit of clear "almost sticky" discharge from the left leg wound. She denies any fevers denies any abdominal pain nausea vomiting chest pain or shortness of breath. She just wanted to get the wound checked out to make sure it looks okay because her next follow-up visit for 5 days. PFSH Past Medical History Blood Disorders: No Anxiety: Yes Depression: No Heart Rhythm Problems: No Cancer: No Cardiovascular Problems: No High Cholesterol: Yes Chest Pain: No Congestive Heart Failure: No Diabetes: Yes Patient Takes Glucophage: Yes Diminished Hearing: No Endocrine: Yes Gastrointestinal Disorders: No Genitourinary: No Hypertension: Yes Immune Disorder: No Musculoskeletal: Yes (SCIATICA) Neurologic: No Psychiatric: Yes Reproductive: No Respiratory: No Thyroid Disease: Yes (hyper) Tetanus Vaccination: < 5 Years Influenza Vaccination: Yes Menopausal: Yes Tubal Ligation: Yes Past Surgical History Abdominal Surgery: Yes (gastric sleeve) Section: Yes (X3) Cholecystectomy: Yes Gynecologic Surgery: Yes (3 c sections) Other Surgery: Yes Family History Family Myocardial Infarction: Yes (Mother) Social History Alcohol Use: Yes (COUPLE [employer] PER NIGHT) Tobacco Use: No Substance Use: No Allergies-Medications (Allergen,Severity, Reaction): Coded Allergies: Penicillin (Verified Allergy, Severe, mouth and gum swelling, 05/30/17) Reported Meds & Prescriptions Reported Meds & Active Scripts Active Sulfamethoxazole-Trimethoprim 800-160 Mg Tab 1 Tab PO BID Hydrocodone-Acetaminophen 5-325 mg Tab 1-2 Tab PO Q4-6H PRN Lisinopril 2.5 Mg Tab 2.5 Mg PO DAILY Simvastatin 20 Mg Tab 20 Mg PO DAILY Levothyroxine (Levothyroxine Sodium) 125 Mcg Tab 125 Mcg PO DAILY Please make f/u appointment. Metformin (Metformin HCl) 500 Mg Tab 500 Mg PO BID With a meal Vitamin D (Cholecalciferol) 2,000 Unit Cap 1 Cap PO DAILY Reported Aspirin Low Dose (Aspirin) 81 Mg Chew 81 Mg CHEW DAILY Review of Systems Except as stated in HPI: all other systems reviewed are Neg Physical Exam Narrative GENERAL: Well-nourished, well-developed patient. SKIN: Patient's left leg abscess shows some granulation tissue, no discharge can be expressed, location is the proximal inner thigh on the left. Cellulitis area has substantially decreased in area from prior marking around the wound, there is really minimal surrounding induration no lymphadenitis. HEAD: Normocephalic. EYES: No scleral icterus. No injection or drainage. NECK: Supple, trachea midline. No JVD or lymphadenopathy. CARDIOVASCULAR: Regular rate and rhythm without murmurs, gallops, or rubs. RESPIRATORY: Breath sounds equal bilaterally. No accessory muscle use. GASTROINTESTINAL: Abdomen soft, non-tender, nondistended. MUSCULOSKELETAL: No cyanosis, or edema. BACK: Nontender without obvious deformity. No CVA tenderness. Data Data Last Documented VS Vital Signs Date Time Temp Pulse Resp B/P Pulse Ox O2 Delivery O2 Flow Rate FiO2 05/30/17 15:12 78 18 05/30/17 14:53 97.9 163/80 98 Room Air MDM Medical Decision Making Medical Screen Exam Complete: Yes Emergency Medical Condition: Yes Differential Diagnosis Healing left leg abscess, sepsis unlikely, cellulitis, Narrative Course 7-year-old female presents emergency department for evaluation of the left leg abscess, on my exam the abscess appears to be healing quite well. She appears well and in no obvious distress. Discussed with her continue her antibiotics and following up with primary care physician. Discussed with her return to ED criteria. Diagnosis Primary Impression: Abscess Additional Instructions: Looks to be healing well! If any fevers start or worsening redness or pain return to ED. Otherwise follow up with PCP on as scheduled. Disposition: DISCHARGE HOME Condition: Stable Romero Romero MD May 30, 2017 16:50
--- NOTE | 2017-05-30 16:55 | PD ---
HPI Chief Complaint: Skin Problem Time Seen by Provider: 16:47 Travel History International Travel<30 days: No Contact w/Intl Traveler<30days: No Traveled to known affect area: No History of Present Illness HPI Patient is a 61-year-old female presenting to the emergency for evaluation of a skin lesion to her left inner thigh. Patient states she had a spider bite one week ago she was admitted to the hospital for IV antibiotics and discharged a few days ago. Patient presents for evaluation due to the drainage. She states the drainage has been consistent since the incision and drainage, the drainage is minimal, no foul odor noted. The area was marked previously and there has been significant recession of the induration that was present prior. Patient denies any fever, chills, increased pain, swelling. Patient has an appointment with her primary doctor on . PFSH Past Medical History Blood Disorders: No Anxiety: Yes Depression: No Heart Rhythm Problems: No Cancer: No Cardiovascular Problems: No High Cholesterol: Yes Chest Pain: No Congestive Heart Failure: No Diabetes: Yes Patient Takes Glucophage: Yes Diminished Hearing: No Endocrine: Yes Gastrointestinal Disorders: No Genitourinary: No Hypertension: Yes Immune Disorder: No Musculoskeletal: Yes (SCIATICA) Neurologic: No Psychiatric: Yes Reproductive: No Respiratory: No Thyroid Disease: Yes (hyper) Tetanus Vaccination: < 5 Years Influenza Vaccination: Yes Menopausal: Yes Tubal Ligation: Yes Past Surgical History Abdominal Surgery: Yes (gastric sleeve) Section: Yes (X3) Cholecystectomy: Yes Gynecologic Surgery: Yes (3 c sections) Other Surgery: Yes Family History Family Myocardial Infarction: Yes (Mother) Social History Alcohol Use: Yes (C[employer] PER NIGHT) Tobacco Use: No Substance Use: No Allergies-Medications (Allergen,Severity, Reaction): Coded Allergies: Penicillin (Verified Allergy, Severe, mouth and gum swelling, 05/30/17) Reported Meds & Prescriptions Reported Meds & Active Scripts Active Sulfamethoxazole-Trimethoprim 800-160 Mg Tab 1 Tab PO BID Hydrocodone-Acetaminophen 5-325 mg Tab 1-2 Tab PO Q4-6H PRN Lisinopril 2.5 Mg Tab 2.5 Mg PO DAILY Simvastatin 20 Mg Tab 20 Mg PO DAILY Levothyroxine (Levothyroxine Sodium) 125 Mcg Tab 125 Mcg PO DAILY Please make f/u appointment. Metformin (Metformin HCl) 500 Mg Tab 500 Mg PO BID With a meal Vitamin D (Cholecalciferol) 2,000 Unit Cap 1 Cap PO DAILY Reported Aspirin Low Dose (Aspirin) 81 Mg Chew 81 Mg CHEW DAILY Review of Systems Except as stated in HPI: all other systems reviewed are Neg Skin: Positive Lesions Physical Exam Narrative GENERAL: Overweight, well-developed, alert female. Resting comfortably in no acute distress. SKIN: Warm and dry. 1 Centimeter superficial ulceration to the inner aspect of the left thigh, scant serosanguineous drainage noted. Recession of induration noted from prior markings. HEAD: Atraumatic. Normocephalic. EYES: Pupils equal and round. No scleral icterus. No injection or drainage. ENT: No nasal bleeding or discharge. Mucous membranes pink and moist. NECK: Trachea midline. No JVD. CARDIOVASCULAR: Regular rate and rhythm. RESPIRATORY: No accessory muscle use. Clear to auscultation. Breath sounds equal bilaterally. GASTROINTESTINAL: Abdomen soft, non-tender, nondistended. Hepatic and splenic margins not palpable. MUSCULOSKELETAL: Extremities without clubbing, cyanosis, or edema. No obvious deformities. NEUROLOGICAL: Awake and alert. No obvious cranial nerve deficits. Motor grossly within normal limits. Five out of 5 muscle strength in the arms and legs. Normal speech. PSYCHIATRIC: Appropriate mood and affect; insight and judgment normal. Data Data Last Documented VS Vital Signs Date Time Temp Pulse Resp B/P Pulse Ox O2 Delivery O2 Flow Rate FiO2 05/30/17 15:12 78 18 05/30/17 14:53 97.9 163/80 98 Room Air [facility] Medical Decision Making Medical Screen Exam Complete: Yes Emergency Medical Condition: Yes Medical Record Reviewed: Yes Interpretation(s) Vital Signs Date Time Temp Pulse Resp B/P Pulse Ox O2 Delivery O2 Flow Rate FiO2 05/30/17 15:12 78 18 05/30/17 14:53 97.9 86 18 163/80 98 Room Air Differential Diagnosis Cellulitis versus abscess versus sepsis versus other Narrative Course Patient is a 61-year-old female presenting for reevaluation of a draining wound to her left inner thigh. Patient is compliant with antibiotic therapy, she is afebrile, her vital signs are stable. Area was marked prior to her discharge, there has been significant recession of the induration. Patient appears to be improving. She patient is encouraged to continue antibiotic therapy as prescribed, keep area clean and dry, change dressings daily and as needed for soiling. She was discussed case on the signs and symptoms of infection, she was advised to return to emergency room immediately for any new or worsening symptoms. She verbalized understanding of these instructions. Patient is stable for discharge. Diagnosis Primary Impression: Cellulitis of left leg Referrals: Primary Care Physician 3 days Patient Instructions: Cellulitis (DC), General Instructions Additional Instructions: Follow-up with her primary care provider as scheduled Continue antibiotics as previously prescribed You may apply warm compresses to the affected area Keep area clean and dry, change dressings daily and as needed for soiling Return to emergency department immediately for any new or worsening symptoms Med/Other Pt SpecificInfo: No Change to Meds Disposition: 01 DISCHARGE HOME Condition: Stable Elyse Borjas May 30, 2017 16:54
== END 2017-05-30 17:12 | disposition home or self-care (01) ==
LOC: NEPE 14:52
DX: L03.116 Cellulitis of left lower limb (principal); F41.9 Anxiety disorder, unspecified; E78.00 Pure hypercholesterolemia, unspecified; E11.9 Type 2 diabetes mellitus without complications; I10 Essential (primary) hypertension; Z79.82 Long term (current) use of aspirin; Z79.899 Other long term (current) drug therapy; Z88.0 Allergy status to penicillin
CPT/HCPCS: 99282